=== PATIENT | female | born 1945 | race Caucasian/White ===

== ENCOUNTER 2022-01-28 19:14 | Inpatient (IN) | payer MEDICARE, MEDICAID, SELFPAY ==
[2022-01-28 19:49] VITALS: BP 144/70; PULSE 86; RESP 16; TEMP 36.2; O2SAT 96; BMI 20.5
--- NOTE | 2022-01-28 20:14 | ECG_ITS ---
Test Reason : CONFUSION Blood Pressure : / mmHG Vent. Rate : 072 BPM Atrial Rate : 072 BPM P-R Int : 160 ms QRS Dur : 074 ms QT Int : 420 ms P-R-T Axes : 062 042 067 degrees QTc Int : 459 ms Normal sinus rhythm Normal ECG No previous ECGs available Referred By: Melodie Doyle Electronically Signed By:CAREY LÓPEZ MD
--- NOTE | 2022-01-28 20:37 | ED.PSYCH ---
HPI - Psych General Chief Complaint: Psychiatric Symptoms <TREY Helm Last Filed: 01/28/22 20:45> Stated Complaint: crisis eval <TREY Helm Last Filed: 01/28/22 20:45> Time Seen by Provider: 01/28/22 20:08 <TREY Helm Last Filed: 01/28/22 20:45> Source: patient <TREY Helm Last Filed: 01/28/22 20:45> Mode of arrival: ambulatory <TREY Helm Last Filed: 01/28/22 20:45> History of Present Illness HPI Narrative: 76-year-old female with a past medical history of depression sent to ED s/p BHN evaluation in the community for [facility] bed search. Patient reports increasing lethargy/sleeping all day and up through the night, not performing ADLs, no desire to do anything, and brain feels empty. Admits to seeing new provider that discontinued her Gabapentin and Ativan without improvement in symptoms. Denies SI/HI, illicit drug or ETOH use. Denies CP/SOB, abdominal pain, nausea/vomiting <TREY Helm Last Filed: 01/28/22 20:45> MD complaint: feels depressed <TREY Helm Last Filed: 01/28/22 20:45> Onset (ago): month(s) <TREY Helm Last Filed: 01/28/22 20:45> Duration: constant and getting worse <TREY Helm Last Filed: 01/28/22 20:45> Related Data Allergies/Adverse Reactions: Allergies Allergy/AdvReac Type Severity Reaction Status Date / Time sertraline Allergy Unknown Verified 01/28/22 20:02 cefuroxime [From Ceftin] AdvReac Stomach Verified 01/28/22 20:01 Upset oxycodone AdvReac Anxiety Verified 01/28/22 20:02 bet AdvReac Palpitation Uncoded 01/28/22 19:59 s <TREY Helm Last Filed: 01/28/22 20:45> Review of Systems Review of Systems: Constitutional: No Fever, No Chills, + Fatigue, + Malaise, +anorexia ENT/Mouth: No Ear Pain, No Nasal Congestion, No Sinus Pain, No sore throat, No Swallowing Difficulty Eyes: No Eye Pain, No Swelling, No Redness Cardiovascular: No Chest Pain, No SOB, No Edema, No Palpitations Respiratory: No Cough, No Sputum, No Dyspnea Gastrointestinal: No Nausea, No Vomiting, No Diarrhea, No Constipation, No Abdominal pain Genitourinary: No Dysuria, No Urinary Frequency, No Hematuria, No Flank Pain Musculoskeletal: No joint pain, No Myalgias, No Joint Swelling Skin: No Skin Lesions, No rash Neuro: No Weakness, No Dizziness, No Headache Psych: No Anxiety/Panic, + Depression, No SI/HI/AH/VH <TREY Helm - Last Filed: 01/28/22 20:45> Yes all other systems are reviewed and are negative <TREY Helm - Last Filed: 01/28/22 20:45> [facility] Past Medical History Attestation statement: The following information was validated with the patient. <TREY Helm - Last Filed: 01/28/22 20:45> Social History Social History: Social History Advance Directives: No Advance Directives Information Provided: No <TREY Helm - Last Filed: 01/28/22 20:45> Physical Exam Vital Signs: Vital Signs: Last Vital Signs Temp 97.9 F 01/28/22 21:41 Pulse 80 01/29/22 01:13 Resp 18 01/29/22 01:13 BP 119/51 L 01/29/22 01:13 Pulse Ox 98 01/29/22 01:13 BMI result Body Mass Index 20.5 <TREY Helm - Last Filed: 01/28/22 20:45> Vital Signs: Last Vital Signs Temp 97.9 F 01/28/22 21:41 Pulse 80 01/29/22 01:13 Resp 18 01/29/22 01:13 BP 119/51 L 01/29/22 01:13 Pulse Ox 98 01/29/22 01:13 BMI result Body Mass Index 20.5 <TREY Perez - Last Filed: 01/29/22 01:44> Const: General: cooperative, healthy appearing, no acute distress, alert and awake <TREY Helm - Last Filed: 01/28/22 20:45> Orientation/consciousness: patient oriented x3 <TREY Helm - Last Filed: 01/28/22 20:45> Limitations: no limitations <TREY Helm - Last Filed: 01/28/22 20:45> HEENT: Head: Yes normal to inspection <Melodie Doyle PA - Last Filed: 01/28/22 20:45> Ears: hearing grossly normal bilaterally <Melodie Doyle PA - Last Filed: 01/28/22 20:45> General nose exam: Normal external nose present <Melodie Doyle PA - Last Filed: 01/28/22 20:45> Face and sinus: Yes normal facial exam <TREY Helm - Last Filed: 01/28/22 20:45> Eyes: General: appearance normal, both eyes and all related structures <TREY Helm - Last Filed: 01/28/22 20:45> Pupils: Equal, round and reactive pupils present <Melodie Doyle PA - Last Filed: 01/28/22 20:45> EOM: EOMs intact bilaterally <Melodie Doyle PA - Last Filed: 01/28/22 20:45> Neck: Neck: Yes normal visual inspection and Yes no meningeal signs <Melodie Doyle PA - Last Filed: 01/28/22 20:45> Resp: Effort & Inspection: normal respiratory effort and no respiratory distress <TREY Helm - Last Filed: 01/28/22 20:45> Auscultation: clear to auscultation bilaterally, no crackles, no rales, no rhonchi and no wheezes <Melodie Doyle PA - Last Filed: 01/28/22 20:45> Cardio: Rate: regular rate <TREY Helm - Last Filed: 01/28/22 20:45> Heart sounds: S1 normal heart sound present and S2 normal heart sound present <TREY Helm - Last Filed: 01/28/22 20:45> GI: Inspection: Yes normal to inspection <TREY Helm - Last Filed: 01/28/22 20:45> Palpation (GI): Soft to palpation, nontender, no guarding and not rigid <Melodie Doyle PA - Last Filed: 01/28/22 20:45> : General: Yes no CVA tenderness <Melodie Doyle PA - Last Filed: 01/28/22 20:45> Back/Spine/Pelvis: Back: no CVA tenderness <Melodie Doyle PA - Last Filed: 01/28/22 20:45> Skin: Rashes: no rashes <Melodie Doyle PA - Last Filed: 01/28/22 20:45> Wounds: no wounds <Melodie Doyle PA - Last Filed: 01/28/22 20:45> Neuro: General: patient oriented x3, tone normal, moves all extremities, no meningeal signs and CN's II-XI intact bilaterally <Melodie Doyle PA - Last Filed: 01/28/22 20:45> Cranial nerves: Yes Equal, round and reactive pupils present <Melodie Doyle PA - Last Filed: 01/28/22 20:45> Gait exam (Neuro): Normal gait present <Melodie Doyle PA - Last Filed: 01/28/22 20:45> Extrem: General: Yes normal to inspection <Melodie Doyle PA - Last Filed: 01/28/22 20:45> Psych: Appearance: grossly normal <Melodie Doyle PA - Last Filed: 01/28/22 20:45> Mental Status: mental status grossly normal <Melodie Doyle PA - Last Filed: 01/28/22 20:45> Speech and movement: Normal speech and movement present and Clear speech present <Melodie Doyle PA - Last Filed: 01/28/22 20:45> Affect: Indifferent affect present and Blunted affect present <Melodie Doyle PA - Last Filed: 01/28/22 20:45> Attitude: cooperative <Melodie Doyle PA - Last Filed: 01/28/22 20:45> Thought process: Normal thought process present <Melodie Doyle PA - Last Filed: 01/28/22 20:45> Thought content: suicidality and no homicidality <TREY Helm Last Filed: 01/28/22 20:45> Insight: Good insight present (Psych) <TREY Helm Last Filed: 01/28/22 20:45> Judgement: Good judgement present (Psych) <TREY Helm Last Filed: 01/28/22 20:45> Course Course Course Narrative: -2100--ED care transferred to TREY Candelaria pending EKG, labs, and [facility] psych bed search <TREY Helm Last Filed: 01/28/22 20:45> Reevaluation(s) Reevaluation #1: CBC without leukocytosis, normocytic anemia is noted. Patient's sodium is noted to be slightly low, however she is receiving IV fluids. UA clean. Toxicology negative. COVID negative. <TREY Perez Last Filed: 01/29/22 01:44> Time: 01:39 <TREY Perez Last Filed: 01/29/22 01:44> Reevaluation #2: At this time patient has been placed in physician observation to allow more time to be evaluated by the behavioral health team. At time observation was started patient, cooperative no acute distress. No medical complaints. Physical examination unchanged from initial. Will continue to monitor. <TREY Perez - Last Filed: 01/29/22 01:44> Time: 01:44 <TREY Perez Last Filed: 01/29/22 01:44> MDM - Psych MDM Narrative Medical decision making narrative: 76-year-old female with a past medical history of depression sent to ED s/p BHN evaluation in the community for [facility] psych bed search. Patient reports increasing lethargy/sleeping all day and up through the night, not performing ADLs, no desire to do anything, and brain feels empty. On exam vital signs stable, NAD/nontoxic, physical exam as above. Patient was already evaluated in community and is [facility] psych bed search Will obtain EKG and clearance labs Physician observation initiated <TREY Hlem Last Filed: 01/28/22 20:45> Differential Diagnosis Differential diagnosis: Likely depression and mood disorder <TREY Helm Last Filed: 01/28/22 20:45> Medical Records Attestation: I reviewed the patient's medical records. <TREY Helm - Last Filed: 01/28/22 20:45> Lab Data Attestation: I reviewed the patient's lab results. <TREY Helm - Last Filed: 01/28/22 20:45> Result diagrams: : 01/28/22 21:19 01/28/22 21:19 <TREY Helm - Last Filed: 01/28/22 20:45> Labs: Lab Results 01/28/22 01/28/22 01/28/22 Range/Units 21:19 21:19 21:19 WBC 8.4 (4.8-10.8) X10*3/uL RBC 4.02 L (4.20-5.50) X10*6/uL Hgb 10.9 L (12.0-16.0) g/dl Hct 32.9 L (37.0-47.0) % MCV 81.8 (80.0-98.0) fL MCH 27.1 (27.0-33.0) pg MCHC 33.1 (31.0-35.0) g/dl RDW 13.9 (11.0-16.0) % Plt Count 296 (160-400) X10*3/uL MPV 10.0 (9.4-12.3) fL Immature Gran % (Auto) 0.4 (0.0-0.4) % Neut % (Auto) 77.4 H (45-73) % Lymph % (Auto) 10.9 L (20-40) % [place] % (Auto) 9.8 (2-11) % Eos % (Auto) 1.1 (0-4) % Baso % (Auto) 0.4 (0-2) % Lymph # (Auto) 0.9 L (1.2-4.9) X10*3/uL [place] # (Auto) 0.8 (0.1-1.2) X10*3/uL Eos # (Auto) 0.1 (0.0-0.4) X10*3/uL Baso # (Auto) 0.0 (0.0-0.2) X10*3/uL Abs Immat Gran (auto) 0.03 (0.00-0.03) X10*3/uL Absolute Neuts (auto) 6.5 (2.0-8.3) x10*3/uL Absolute Nucleated RBC 0.000 (0.0-0.012) X10*3/uL Nucleated RBC % (auto) 0.0 (0.0-0.2) /100WBC Sodium 132 L (135-145) mmol/L Potassium 3.8 (3.3-5.1) mmol/L Chloride 95 L (96-108) mmol/L Carbon Dioxide 28 (22-29) mmol/L Anion Gap 13 (12-20) BUN 12 (9-16) mg/dL Creatinine 0.70 (0.5-1.4) mg/dL Estim Creat Clear Calc 58.7 Estimated GFR > 60 Random Glucose 101 (60-115) mg/dL Calcium 9.4 (8.4-10.2) mg/dL Magnesium 1.8 (1.6-2.6) mg/dL Total Bilirubin 0.4 (0.0-1.0) mg/dL Direct Bilirubin 0.2 (0.0-0.5) mg/dL AST 31 (5-31) U/L ALT 27 (0-31) U/L Alkaline Phosphatase 115 (39-117) U/L Total Protein 6.6 (6.5-8.0) g/dL Albumin 4.0 (3.5-5.0) g/dL Urine Color Urine Appearance Urine pH (5.0-8.0) Ur Specific [place] (1.005-1.025) Urine Protein (NEG-TRACE) MG/DL Urine Glucose (UA) (NEG) MG/DL Urine Ketones (NEG) MG/DL Urine Blood (NEG) Urine Nitrite (NEG) Ur Leukocyte Esterase (NEG) Urine RBC (0) /HPF Urine WBC (0-4) /HPF Ur Squamous Epith Cells /LPF Calcium Phosphate Cryst /LPF Urine Bacteria /LPF Urine Opiates Screen (Not Detect) Urine Fentanyl Screen (Not Detect) Ur Barbiturates Screen (Not Detect) Ur Phencyclidine Scrn (Not Detect) Ur Amphetamines Screen (Not Detect) U Benzodiazepines Scrn (Not Detect) Urine Cocaine Screen (Not Detect) U Marijuana (THC) Screen (Not Detect) COVID-19 ([facility]) Negative (Negative) COVID-19 Clin Com See Note 01/29/22 01/29/22 Range/Units 01:03 01:03 WBC (4.8-10.8) X10*3/uL RBC (4.20-5.50) X10*6/uL Hgb (12.0-16.0) g/dl Hct (37.0-47.0) % MCV (80.0-98.0) fL MCH (27.0-33.0) pg MCHC (31.0-35.0) g/dl RDW (11.0-16.0) % Plt Count (160-400) X10*3/uL MPV (9.4-12.3) fL Immature Gran % (Auto) (0.0-0.4) % Neut % (Auto) (45-73) % Lymph % (Auto) (20-40) % [place] % (Auto) (2-11) % Eos % (Auto) (0-4) % Baso % (Auto) (0-2) % Lymph # (Auto) (1.2-4.9) X10*3/uL [place] # (Auto) (0.1-1.2) X10*3/uL Eos # (Auto) (0.0-0.4) X10*3/uL Baso # (Auto) (0.0-0.2) X10*3/uL Abs Immat Gran (auto) (0.00-0.03) X10*3/uL Absolute Neuts (auto) (2.0-8.3) x10*3/uL Absolute Nucleated RBC (0.0-0.012) X10*3/uL Nucleated RBC % (auto) (0.0-0.2) /100WBC Sodium (135-145) mmol/L Potassium (3.3-5.1) mmol/L Chloride (96-108) mmol/L Carbon Dioxide (22-29) mmol/L Anion Gap (12-20) BUN (9-16) mg/dL Creatinine (0.5-1.4) mg/dL Estim Creat Clear Calc Estimated GFR Random Glucose (60-115) mg/dL Calcium (8.4-10.2) mg/dL Magnesium (1.6-2.6) mg/dL Total Bilirubin (0.0-1.0) mg/dL Direct Bilirubin (0.0-0.5) mg/dL AST (5-31) U/L ALT (0-31) U/L Alkaline Phosphatase (39-117) U/L Total Protein (6.5-8.0) g/dL Albumin (3.5-5.0) g/dL Urine Color YELLOW Urine Appearance CLEAR Urine pH 6.5 (5.0-8.0) Ur Specific [place] 1.010 (1.005-1.025) Urine Protein NEG (NEG-TRACE) MG/DL Urine Glucose (UA) NEG (NEG) MG/DL Urine Ketones NEG (NEG) MG/DL Urine Blood NEG (NEG) Urine Nitrite NEG (NEG) Ur Leukocyte Esterase TRACE H (NEG) Urine RBC 0 (0) /HPF Urine WBC 1-4 (0-4) /HPF Ur Squamous Epith Cells TRACE /LPF Calcium Phosphate Cryst TRACE /LPF Urine Bacteria TRACE /LPF Urine Opiates Screen Not Detected (Not Detect) Urine Fentanyl Screen Not Detected (Not Detect) Ur Barbiturates Screen Not Detected (Not Detect) Ur Phencyclidine Scrn Not Detected (Not Detect) Ur Amphetamines Screen Not Detected (Not Detect) U Benzodiazepines Scrn Not Detected (Not Detect) Urine Cocaine Screen Not Detected (Not Detect) U Marijuana (THC) Screen Not Detected (Not Detect) COVID-19 ([facility]) (Negative) COVID-19 Clin Com <TREY Helm - Last Filed: 01/28/22 20:45> Lab Results 01/28/22 01/28/22 01/28/22 Range/Units 21:19 21:19 21:19 WBC 8.4 (4.8-10.8) X10*3/uL RBC 4.02 L (4.20-5.50) X10*6/uL Hgb 10.9 L (12.0-16.0) g/dl Hct 32.9 L (37.0-47.0) % MCV 81.8 (80.0-98.0) fL MCH 27.1 (27.0-33.0) pg MCHC 33.1 (31.0-35.0) g/dl RDW 13.9 (11.0-16.0) % Plt Count 296 (160-400) X10*3/uL MPV 10.0 (9.4-12.3) fL Immature Gran % (Auto) 0.4 (0.0-0.4) % Neut % (Auto) 77.4 H (45-73) % Lymph % (Auto) 10.9 L (20-40) % [place] % (Auto) 9.8 (2-11) % Eos % (Auto) 1.1 (0-4) % Baso % (Auto) 0.4 (0-2) % Lymph # (Auto) 0.9 L (1.2-4.9) X10*3/uL [place] # (Auto) 0.8 (0.1-1.2) X10*3/uL Eos # (Auto) 0.1 (0.0-0.4) X10*3/uL Baso # (Auto) 0.0 (0.0-0.2) X10*3/uL Abs Immat Gran (auto) 0.03 (0.00-0.03) X10*3/uL Absolute Neuts (auto) 6.5 (2.0-8.3) x10*3/uL Absolute Nucleated RBC 0.000 (0.0-0.012) X10*3/uL Nucleated RBC % (auto) 0.0 (0.0-0.2) /100WBC Sodium 132 L (135-145) mmol/L Potassium 3.8 (3.3-5.1) mmol/L Chloride 95 L (96-108) mmol/L Carbon Dioxide 28 (22-29) mmol/L Anion Gap 13 (12-20) BUN 12 (9-16) mg/dL Creatinine 0.70 (0.5-1.4) mg/dL Estim Creat Clear Calc 58.7 Estimated GFR > 60 Random Glucose 101 (60-115) mg/dL Calcium 9.4 (8.4-10.2) mg/dL Magnesium 1.8 (1.6-2.6) mg/dL Total Bilirubin 0.4 (0.0-1.0) mg/dL Direct Bilirubin 0.2 (0.0-0.5) mg/dL AST 31 (5-31) U/L ALT 27 (0-31) U/L Alkaline Phosphatase 115 (39-117) U/L Total Protein 6.6 (6.5-8.0) g/dL Albumin 4.0 (3.5-5.0) g/dL Urine Color Urine Appearance Urine pH (5.0-8.0) Ur Specific [place] (1.005-1.025) Urine Protein (NEG-TRACE) MG/DL Urine Glucose (UA) (NEG) MG/DL Urine Ketones (NEG) MG/DL Urine Blood (NEG) Urine Nitrite (NEG) Ur Leukocyte Esterase (NEG) Urine RBC (0) /HPF Urine WBC (0-4) /HPF Ur Squamous Epith Cells /LPF Calcium Phosphate Cryst /LPF Urine Bacteria /LPF Urine Opiates Screen (Not Detect) Urine Fentanyl Screen (Not Detect) Ur Barbiturates Screen (Not Detect) Ur Phencyclidine Scrn (Not Detect) Ur Amphetamines Screen (Not Detect) U Benzodiazepines Scrn (Not Detect) Urine Cocaine Screen (Not Detect) U Marijuana (THC) Screen (Not Detect) COVID-19 ([facility]) Negative (Negative) COVID-19 Clin Com See Note 01/29/22 01/29/22 Range/Units 01:03 01:03 WBC (4.8-10.8) X10*3/uL RBC (4.20-5.50) X10*6/uL Hgb (12.0-16.0) g/dl Hct (37.0-47.0) % MCV (80.0-98.0) fL MCH (27.0-33.0) pg MCHC (31.0-35.0) g/dl RDW (11.0-16.0) % Plt Count (160-400) X10*3/uL MPV (9.4-12.3) fL Immature Gran % (Auto) (0.0-0.4) % Neut % (Auto) (45-73) % Lymph % (Auto) (20-40) % [place] % (Auto) (2-11) % Eos % (Auto) (0-4) % Baso % (Auto) (0-2) % Lymph # (Auto) (1.2-4.9) X10*3/uL [place] # (Auto) (0.1-1.2) X10*3/uL Eos # (Auto) (0.0-0.4) X10*3/uL Baso # (Auto) (0.0-0.2) X10*3/uL Abs Immat Gran (auto) (0.00-0.03) X10*3/uL Absolute Neuts (auto) (2.0-8.3) x10*3/uL Absolute Nucleated RBC (0.0-0.012) X10*3/uL Nucleated RBC % (auto) (0.0-0.2) /100WBC Sodium (135-145) mmol/L Potassium (3.3-5.1) mmol/L Chloride (96-108) mmol/L Carbon Dioxide (22-29) mmol/L Anion Gap (12-20) BUN (9-16) mg/dL Creatinine (0.5-1.4) mg/dL Estim Creat Clear Calc Estimated GFR Random Glucose (60-115) mg/dL Calcium (8.4-10.2) mg/dL Magnesium (1.6-2.6) mg/dL Total Bilirubin (0.0-1.0) mg/dL Direct Bilirubin (0.0-0.5) mg/dL AST (5-31) U/L ALT (0-31) U/L Alkaline Phosphatase (39-117) U/L Total Protein (6.5-8.0) g/dL Albumin (3.5-5.0) g/dL Urine Color YELLOW Urine Appearance CLEAR Urine pH 6.5 (5.0-8.0) Ur Specific [place] 1.010 (1.005-1.025) Urine Protein NEG (NEG-TRACE) MG/DL Urine Glucose (UA) NEG (NEG) MG/DL Urine Ketones NEG (NEG) MG/DL Urine Blood NEG (NEG) Urine Nitrite NEG (NEG) Ur Leukocyte Esterase TRACE H (NEG) Urine RBC 0 (0) /HPF Urine WBC 1-4 (0-4) /HPF Ur Squamous Epith Cells TRACE /LPF Calcium Phosphate Cryst TRACE /LPF Urine Bacteria TRACE /LPF Urine Opiates Screen Not Detected (Not Detect) Urine Fentanyl Screen Not Detected (Not Detect) Ur Barbiturates Screen Not Detected (Not Detect) Ur Phencyclidine Scrn Not Detected (Not Detect) Ur Amphetamines Screen Not Detected (Not Detect) U Benzodiazepines Scrn Not Detected (Not Detect) Urine Cocaine Screen Not Detected (Not Detect) U Marijuana (THC) Screen Not Detected (Not Detect) COVID-19 ([facility]) (Negative) COVID-19 Clin Com <TREY Perez - Last Filed: 01/29/22 01:44> Discharge Plan Discharge Clinical Impression: Depression <TREY Helm - Last Filed: 01/28/22 20:45> Patient Disposition: Still a Patient <TREY Helm - Last Filed: 01/28/22 20:45>
--- NOTE | 2022-01-28 21:10 | PC.NURSE ---
[facility] online referral completed. mechanical laboratory technician at bedside for labs and EKG.
[2022-01-28 21:25] LABS: MANUAL DIFF FLAG NO
[2022-01-28 21:31] LABS: Basophils Percent Auto 0.4 % (0-2); Eosinophils Absolute Auto 0.1 X10*3/uL (0.0-0.4); Eosinophils Percent Auto 1.1 % (0-4); Hematocrit 32.9 % (37.0-47.0); Hemoglobin 10.9 g/dl (12.0-16.0); Imm Gran Abs Auto 0.03 X10*3/uL (0.00-0.03); Imm Gran Pct Auto 0.4 % (0.0-0.4); Lymphocytes Absolute Auto 0.9 X10*3/uL (1.2-4.9); Lymphocytes Percent Auto 10.9 % (20-40); Mean Corpuscular HGB Conc 33.1 g/dl (31.0-35.0); Mean Corpuscular Hemoglobin 27.1 pg (27.0-33.0); Mean Corpuscular Volume 81.8 fL (80.0-98.0); Monocytes Absolute Auto 0.8 X10*3/uL (0.1-1.2); Monocytes Percent Auto 9.8 % (2-11); Neutrophils Absolute Auto 6.5 x10*3/uL (2.0-8.3); Neutrophils Percent Auto 77.4 % (45-73); Platelet Count 296 X10*3/uL (160-400); Red Blood Count 4.02 X10*6/uL (4.20-5.50); Red Cell Distribution Width 13.9 % (11.0-16.0); White Blood Count 8.4 X10*3/uL (4.8-10.8)
[2022-01-28 21:41] VITALS: BP 115/58; PULSE 65; RESP 14; TEMP 36.6; O2SAT 93
[2022-01-28 21:42] LABS: Alanine Aminotransferase 27 U/L (0-31); Alkaline Phosphatase 115 U/L (39-117); Anion Gap 13 (12-20); Aspartate Amino Transferase 31 U/L (5-31); Bilirubin Direct 0.2 mg/dL (0.0-0.5); Bilirubin Total 0.4 mg/dL (0.0-1.0); Blood Urea Nitrogen 12 mg/dL (9-16); Calcium 9.4 mg/dL (8.4-10.2); Carbon Dioxide 28 mmol/L (22-29); Chloride 95 mmol/L (96-108); Creatinine Clr Calc Pharmacy 58.7; Estimated Glomerular Filt Rate > 60; Glucose Random 101 mg/dL (60-115); Magnesium 1.8 mg/dL (1.6-2.6); Potassium 3.8 mmol/L (3.3-5.1); Sodium 132 mmol/L (135-145); Total Protein 6.6 g/dL (6.5-8.0)
[2022-01-28 22:24] LABS: COVID-19 Test Negative (Negative); IDNOW Serial# 16C4AD1C
--- NOTE | 2022-01-28 23:46 | PC.NURSE ---
PT asked to use bathroom and requested urine cup in order to provide sample. When PT came out of the bathroom she stated that she missed the cup for the sample.
[2022-01-28] MEDS: 0.9 % Sodium Chloride 1,000 ML 999 ML IV (23:48)
--- NOTE | 2022-01-29 | ECG_ITS ---
Test Reason : MEDICAL CLEARANCE Blood Pressure : / mmHG Vent. Rate : 081 BPM Atrial Rate : 081 BPM P-R Int : 176 ms QRS Dur : 078 ms QT Int : 394 ms P-R-T Axes : 076 042 072 degrees QTc Int : 457 ms Sinus rhythm with frequent Premature ventricular complexes Otherwise normal ECG When compared with ECG of 28-JAN-2022 21:21, Premature ventricular complexes are now Present Referred By: Maria A Baker Electronically Signed By:CAERY LÓPEZ MD
--- NOTE | 2022-01-29 01:09 | PC.NURSE ---
Urine sample sent to lab. 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
[2022-01-29 01:11] LABS: Appearance Urine CLEAR; Color Urine YELLOW; Glucose Urine UA NEG (NEG); Leukocyte Esterase Urine TRACE (NEG); Nitrite Urine NEG (NEG); PH 6.5 (5.0-8.0); UACC Culture Trigger YES; Urine Blood NEG (NEG); Urine Ketones NEG (NEG); Urine Protein NEG (NEG-TRACE)
[2022-01-29 01:13] VITALS: BP 119/51; PULSE 80; RESP 18; O2SAT 98
[2022-01-29] MEDS: Acetaminophen 325 MG TABLET 650 MG PO ×4 (01:16→23:22)
[2022-01-29 01:22] LABS: Bacteria Urine TRACE /LPF; Calcium Phosphate Crystals Ur TRACE /LPF; RBC Urine 0 /HPF (0); Squamous Epithelial Cell Urine TRACE /LPF
[2022-01-29 01:32] LABS: Amphetamine Screen Urine Not Detected (Not Detect); Barbiturates, Urine Not Detected (Not Detect); Benzodiazepines Screen Urine Not Detected (Not Detect); Cannabinoid Screen Urine Not Detected (Not Detect); Cocaine Screen Urine Not Detected (Not Detect); Fentanyl, urine Not Detected (Not Detect); Opiate Screen Urine Not Detected (Not Detect); Phencyclidine Screen Urine Not Detected (Not Detect)
[2022-01-29 02:48] LABS: Basophils Percent Auto 0.6 % (0-2); Eosinophils Absolute Auto 0.2 X10*3/uL (0.0-0.4); Eosinophils Percent Auto 3.2 % (0-4); Hematocrit 31.6 % (37.0-47.0); Hemoglobin 10.6 g/dl (12.0-16.0); Imm Gran Abs Auto 0.02 X10*3/uL (0.00-0.03); Imm Gran Pct Auto 0.3 % (0.0-0.4); Lymphocytes Absolute Auto 1.2 X10*3/uL (1.2-4.9); Lymphocytes Percent Auto 17.4 % (20-40); MANUAL DIFF FLAG NO; Mean Corpuscular HGB Conc 33.5 g/dl (31.0-35.0); Mean Corpuscular Hemoglobin 27.6 pg (27.0-33.0); Mean Corpuscular Volume 82.3 fL (80.0-98.0); Mean Platelet Volume 9.9 fL (9.4-12.3); Monocytes Absolute Auto 0.8 X10*3/uL (0.1-1.2); Neutrophils Absolute Auto 4.6 x10*3/uL (2.0-8.3); Neutrophils Percent Auto 66.5 % (45-73); Platelet Count 274 X10*3/uL (160-400); Red Blood Count 3.84 X10*6/uL (4.20-5.50); White Blood Count 6.9 X10*3/uL (4.8-10.8)
--- NOTE | 2022-01-29 03:45 | PC.NURSE ---
PT med rec completed with reference to PT medical record and recently filled prescriptions.
[2022-01-29 06:00] VITALS: BP 116/59; PULSE 87; RESP 16; TEMP 36.3; O2SAT 97
[2022-01-29] MEDS: amLODIPine Besylate 10 MG TABLET PO (10:36)
[2022-01-29] MEDS: hydroCHLOROthiazide 12.5 MG TABLET PO (11:03)
[2022-01-29] MEDS: Clopidogrel Bisulfate 75 MG TABLET PO (11:04)
[2022-01-29] MEDS: Valsartan 80 MG TABLET PO (11:31)
--- NOTE | 2022-01-29 11:34 | PC.NURSE ---
Pt is A&Ox4, headache 02/04 at this time, medicated as per [facility] orders for headache. Pt is anxious being in the POD, explained procedure to pt at this time. Pt is calm and cooperative. Refused taking Lexapro as she said it is not a medication she currently takes and she doesn't feel comfortable taking it at this time. Awaiting inpatient [facility] psych bed, will continue to monitor.
[2022-01-29] MEDS: Ipratropium Bromide 1 PUFF/17 MCG INHALER 2 PUFF INHALE ×3 (12:56→19:49)
[2022-01-29 14:32] VITALS: BP 123/47; PULSE 69; RESP 18; TEMP 36.8; O2SAT 95
[2022-01-29 19:30] VITALS: BP 101/53; PULSE 89; TEMP 36.1
[2022-01-29] MEDS: Atorvastatin Calcium 80 MG TABLET PO (19:52)
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
[2022-01-30] MEDS: LORazepam 0.5 MG TABLET 0.25 MG PO (02:55)
[2022-01-30 08:22] LABS: Hemoglobin 10.1 g/dl (12.0-16.0); Mean Corpuscular HGB Conc 32.6 g/dl (31.0-35.0); Mean Corpuscular Hemoglobin 26.8 pg (27.0-33.0); Mean Corpuscular Volume 82.2 fL (80.0-98.0); Mean Platelet Volume 10.4 fL (9.4-12.3); Platelet Count 281 X10*3/uL (160-400); Red Blood Count 3.77 X10*6/uL (4.20-5.50); White Blood Count 6.9 X10*3/uL (4.8-10.8)
[2022-01-30 08:40] LABS: Anion Gap 13 (12-20); Blood Urea Nitrogen 13 mg/dL (9-16); Calcium 9.4 mg/dL (8.4-10.2); Carbon Dioxide 28 mmol/L (22-29); Chloride 96 mmol/L (96-108); Creatinine Clr Calc Pharmacy 60.4; Estimated Glomerular Filt Rate > 60; Potassium 3.2 mmol/L (3.3-5.1); Sodium 134 mmol/L (135-145)
[2022-01-30 08:56] VITALS: BP 123/60; PULSE 77; TEMP 36.3
[2022-01-30] MEDS: Valsartan 80 MG TABLET PO (08:58)
[2022-01-30] MEDS: Omeprazole 20 MG CAPSULE.DR PO (08:58)
[2022-01-30] MEDS: Clopidogrel Bisulfate 75 MG TABLET PO (08:58)
[2022-01-30] MEDS: amLODIPine Besylate 10 MG TABLET PO (08:58)
[2022-01-30] MEDS: hydroCHLOROthiazide 12.5 MG TABLET PO (08:58)
[2022-01-30 09:02] LABS: TSH reflex Free T4 1.62 uIU/mL (0.32-4.0)
[2022-01-30] MEDS: Escitalopram Oxalate 20 MG TABLET PO (09:03)
--- NOTE | 2022-01-30 10:17 | P.HPPS_ITS ---
[facility] Date of Service: 01/30/22 Chief Complaint: disorganized Sources of Information: patient interviewed, chart reviewed and crisis/core team assessment reviewed HPI Subjective Notes: Cano Warning and Conditional Voluntary Narrative: Patient is a 76-year-old female with history of mild to moderate depression, stroke, COPD, hypertension, b/l tremor who presents for worsening depression in the face of psychosocial stressors including of her best friend. Patient says that up until the past few months she was her normal self, overall doing well, driving her son to work every morning, going to the store, doing laundry and other household work and pain her own bills. However, her best friend 1 year ago this past October and patient feels that this loss is a significant part of her depression. For the past couple months patient said that she has been feeling sad, sleeping all day. She says she has not been living up to her expectations of herself and lists numerous activities she no longer participates in such as cleaning her house, doing laundry, going to the store; her son and 3-month-old grandson live in the same duplex and she does not visit them nearly as often as she would otherwise; she says she has not been eating very much because she has no energy to get up and make food. Crisis note reports that she has been attending less and less to ADLs. Patient endorses diminished interest, increased guilt, low energy, diminished appetite and once in awhile passive SI where she has had the thought if she just stays asleep perhaps she will not wake up and drift away. Patient says she has been on Lexapro for years. Up until last week she was also on gabapentin which was supposed to be for her tremor but her PCP took her off that, Ativan an iron, concerned that gabapentin and Ativan may be contributing to depression. Patient denies any drug or alcohol use. She agrees to medication management including Wellbutrin however she wonders if she has been on that before. Past Psychiatric History: Limited Medical Evaluation Reviewed: Yes PENDING SALE TO [facility] Medical History (Updated 01/30/22 @ 16:48 by Gustavo Davis MD) MDD (major depressive disorder), recurrent episode, moderate Family History: Maternal grandfather committed suicide Extended family members diagnosed with bipolar disorder Social History: Divorce after 40 years of marriage about 6 years ago Best friend 1 year ago Patient lives in a duplex with her son his and grandson; otherwise has a son and daughter and 3 grandchildren Substance History: Denies Trauma History: Denies Diagnostics Vital Signs (24Hr): Vital Signs - 24 hr 01/29/22 14:32 01/29/22 19:30 01/30/22 08:56 Temperature 98.3 F 97.0 F 97.4 F Pulse Rate 69 89 77 Respiratory Rate 18 Blood Pressure 123/47 L 101/53 L 123/60 Pulse Oximetry 95 BMI result Body Mass Index 20.5 Labs Results: 01/30/22 07:35 01/30/22 07:35 Labs: Laboratory Results - last 48 hr 01/28/22 01/28/22 01/28/22 21:19 21:19 21:19 WBC 8.4 RBC 4.02 L Hgb 10.9 L Hct 32.9 L MCV 81.8 MCH 27.1 MCHC 33.1 RDW 13.9 Plt Count 296 MPV 10.0 Immature Gran % (Auto) 0.4 Neut % (Auto) 77.4 H Lymph % (Auto) 10.9 L Lucas % (Auto) 9.8 Eos % (Auto) 1.1 Baso % (Auto) 0.4 Lymph # (Auto) 0.9 L Lucas # (Auto) 0.8 Eos # (Auto) 0.1 Baso # (Auto) 0.0 Abs Immat Gran (auto) 0.03 Absolute Neuts (auto) 6.5 Absolute Nucleated RBC 0.000 Nucleated RBC % (auto) 0.0 Sodium 132 L Potassium 3.8 Chloride 95 L Carbon Dioxide 28 Anion Gap 13 BUN 12 Creatinine 0.70 Estim Creat Clear Calc 58.7 Estimated GFR > 60 Random Glucose 101 Calcium 9.4 Magnesium 1.8 Total Bilirubin 0.4 Direct Bilirubin 0.2 AST 31 ALT 27 Alkaline Phosphatase 115 Total Protein 6.6 Albumin 4.0 TSH Urine Color Urine Appearance Urine pH Ur Specific [place] Urine Protein Urine Glucose (UA) Urine Ketones Urine Blood Urine Nitrite Ur Leukocyte Esterase Urine RBC Urine WBC Ur Squamous Epith Cells Calcium Phosphate Cryst Urine Bacteria Urine Opiates Screen Urine Fentanyl Screen Ur Barbiturates Screen Ur Phencyclidine Scrn Ur Amphetamines Screen U Benzodiazepines Scrn Urine Cocaine Screen U Marijuana (THC) Screen COVID-19 ([facility]) Negative COVID-19 Clin Com See Note 01/29/22 01/29/22 01/29/22 01:03 01:03 02:44 WBC 6.9 RBC 3.84 L Hgb 10.6 L Hct 31.6 L MCV 82.3 MCH 27.6 MCHC 33.5 RDW 14.0 Plt Count 274 MPV 9.9 Immature Gran % (Auto) 0.3 Neut % (Auto) 66.5 Lymph % (Auto) 17.4 L Lucas % (Auto) 12.0 H Eos % (Auto) 3.2 Baso % (Auto) 0.6 Lymph # (Auto) 1.2 Lucas # (Auto) 0.8 Eos # (Auto) 0.2 Baso # (Auto) 0.0 Abs Immat Gran (auto) 0.02 Absolute Neuts (auto) 4.6 Absolute Nucleated RBC 0.000 Nucleated RBC % (auto) 0.0 Sodium Potassium Chloride Carbon Dioxide Anion Gap BUN Creatinine Estim Creat Clear Calc Estimated GFR Random Glucose Calcium Magnesium Total Bilirubin Direct Bilirubin AST ALT Alkaline Phosphatase Total Protein Albumin TSH Urine Color YELLOW Urine Appearance CLEAR Urine pH 6.5 Ur Specific [place] 1.010 Urine Protein NEG Urine Glucose (UA) NEG Urine Ketones NEG Urine Blood NEG Urine Nitrite NEG Ur Leukocyte Esterase TRACE H Urine RBC 0 Urine WBC 1-4 Ur Squamous Epith Cells TRACE Calcium Phosphate Cryst TRACE Urine Bacteria TRACE Urine Opiates Screen Not Detected Urine Fentanyl Screen Not Detected Ur Barbiturates Screen Not Detected Ur Phencyclidine Scrn Not Detected Ur Amphetamines Screen Not Detected U Benzodiazepines Scrn Not Detected Urine Cocaine Screen Not Detected U Marijuana (THC) Screen Not Detected COVID-19 ([facility]) COVID-19 Clin Com 01/30/22 01/30/22 01/30/22 07:35 07:35 07:35 WBC 6.9 RBC 3.77 L Hgb 10.1 L Hct 31.0 L MCV 82.2 MCH 26.8 L MCHC 32.6 RDW 14.0 Plt Count 281 MPV 10.4 Immature Gran % (Auto) Neut % (Auto) Lymph % (Auto) Lucas % (Auto) Eos % (Auto) Baso % (Auto) Lymph # (Auto) Lucas # (Auto) Eos # (Auto) Baso # (Auto) Abs Immat Gran (auto) Absolute Neuts (auto) Absolute Nucleated RBC 0.000 Nucleated RBC % (auto) 0.0 Sodium 134 L Potassium 3.2 L Chloride 96 Carbon Dioxide 28 Anion Gap 13 BUN 13 Creatinine 0.68 Estim Creat Clear Calc 60.4 Estimated GFR > 60 Random Glucose Calcium 9.4 Magnesium Total Bilirubin Direct Bilirubin AST ALT Alkaline Phosphatase Total Protein Albumin TSH 1.62 Urine Color Urine Appearance Urine pH Ur Specific [place] Urine Protein Urine Glucose (UA) Urine Ketones Urine Blood Urine Nitrite Ur Leukocyte Esterase Urine RBC Urine WBC Ur Squamous Epith Cells Calcium Phosphate Cryst Urine Bacteria Urine Opiates Screen Urine Fentanyl Screen Ur Barbiturates Screen Ur Phencyclidine Scrn Ur Amphetamines Screen U Benzodiazepines Scrn Urine Cocaine Screen U Marijuana (THC) Screen COVID-19 ([facility]) COVID-19 Clin Com Meds/Allergies Meds Home Medications Acetaminophen (Acetaminophen 325 Mg Tablet) 650 mg PO Q6H PRN PRN Reason: mild pain Last Admin: 01/30/22 13:46 Dose: 650 mg Documented by: Al Hydroxide/Mg Hydroxide (Magnesium Hydrox/Alum Hydrox 30 Ml Oral.Susp) 30 ml PO Q6H PRN PRN Reason: Heartburn/Nausea Amlodipine Besylate (Amlodipine Besylate 10 Mg Tablet) 10 mg PO DAILY [facility]; Protocol Last Admin: 01/30/22 08:58 Dose: 10 mg Documented by: Atorvastatin Calcium (Atorvastatin Calcium 80 Mg Tablet) 80 mg PO BEDTIME [facility] Last Admin: 01/29/22 19:52 Dose: 80 mg Documented by: Clopidogrel Bisulfate (Clopidogrel Bisulfate 75 Mg Tablet) 75 mg PO BEDTIME [facility] Cyanocobalamin (Cyanocobalamin (Vitamin B-12) 100 Mcg Tablet) 100 mcg PO DAILY [facility] Escitalopram Oxalate (Escitalopram Oxalate 20 Mg Tablet) 20 mg PO DAILY [facility] Last Admin: 01/30/22 09:03 Dose: 20 mg Documented by: Hydrochlorothiazide (Hydrochlorothiazide 12.5 Mg Tablet) 12.5 mg PO DAILY [facility]; Protocol Last Admin: 01/30/22 08:58 Dose: 12.5 mg Documented by: Ipratropium [place] (Ipratropium [place] 1 Puff/17 Mcg Inhaler) 2 puff INHALE BID PRN PRN Reason: Shortness of Breath Lorazepam (Lorazepam 0.5 Mg Tablet) 0.25 mg PO TID PRN PRN Reason: anxiety Last Admin: 01/30/22 02:55 Dose: 0.25 mg Documented by: Magnesium Hydroxide (Milk Of Magnesia 30 Ml Oral.Susp) 30 ml PO DAILY PRN PRN Reason: Constipation Multivitamins/Vitamin C (Multivitamin Tablet) 1 tab PO DAILY [facility] Nicotine Polacrilex (Nicotine Polacrilex Lozenge 2 Mg Lozenge) 2 mg BUCCAL Q2H PRN PRN Reason: nictotine craving Omeprazole (Omeprazole 20 Mg Capsule.Dr) 20 mg PO DAILY@0630 [facility] Last Admin: 01/30/22 08:58 Dose: 20 mg Documented by: Thiamine HCl (Thiamine Hcl 100 Mg Tablet) 100 mg PO DAILY [facility] Valsartan (Valsartan 80 Mg Tablet) 80 mg PO DAILY [facility]; Protocol Last Admin: 01/30/22 08:58 Dose: 80 mg Documented by: Allergies Allergies Allergy/AdvReac Type Severity Reaction Status Date / Time sertraline Allergy Unknown Verified 01/28/22 20:02 cefuroxime [From Ceftin] AdvReac Stomach Verified 01/28/22 20:01 Upset oxycodone AdvReac Anxiety Verified 01/28/22 20:02 bet AdvReac Palpitation Uncoded 01/28/22 19:59 s Mental Status Exam Mental Status Exam Narrative: Pt is alert and oriented; behavior is cooperative and calm; patient is not in distress; dressed in hospital gown; unkempt hair; mood is described as sad and affect congruent, downcast; eye contact often looking down; Speech is normal rate, volume and prosody and not pressured; some psychomotor retardation present; thought process is organized and goal directed; Thought content is on dealing with sadness; otherwise pertinent to relevant topics and without any delusional content, paranoid ideations or grandiosity; intermittent passive wish, otherwise denies any SI/HI. There is no evidence of perceptual disturbance. Patients insight and judgment are impaired. Assessment & Plan Assessment & Plan (1) MDD (major depressive disorder), recurrent episode, moderate: Status: Acute Code(s): F33.1 - Major depressive disorder, recurrent, moderate Plan Patient is a 76-year-old female with history of mild to moderate depression, stroke, COPD, hypertension, b/l tremor who presents for worsening depression in the face of psychosocial stressors including of her best friend. Patient says that up until the past few months she was her normal self, overall doing well, driving her son to work every morning, going to the store, doing laundry and other household work and pain her own bills. However, her best friend 1 year ago this past October and patient feels that this loss is a significant part of her depression. Patient endorses numerous symptoms of depression, poor attention to ADLs, sleeping all day and eating very little; she has intermittent passive wish but no active SI. Patient has been on Lexapro for years which she reports has been helpful. Recently stopped on gabapentin and Ativan out of concern could be contributing to her depression. Patient would like medication management to help with her symptoms. PLAN: CV Q 15 minute checks Transfer to geriatric floor once bed is available 1. Depression: -Continue Lexapro 20 mg daily -Will consider starting either Wellbutrin or mirtazapine (mirtazapine since it help stimulate appetite however patient has no trouble sleeping; Wellbutrin because patient says she has no energy) -Ca and TSH WNL 2. Normocytic anemia H&H has been slowly trending down during this admission; will follow. She has only been off iron for a week making is an unlikely cause; also it is not microcytic anemia -occult stool test ordered -will follow-up with lab work -B12 WNL -Foloate WNL 3. Mild Electrolyte imbalance -sodium low on admission; writer producer repeated lytes and sodium has trended back to normal -currently potassium mildly low; will monitor 4. Chronic conditions: Continue home medications Consider restarting gabapentin; patient has been on it for years and says it helped with her tremor and only stopped about a week ago making it and unlikely cause of depression Patient educated on: diagnosis and medication risk/benefits Informed Consent: understands Reason for continued inpatient stay Substantial Risk for: inability to function and rapid decompensation
[2022-01-30] MEDS: Cyanocobalamin (Vitamin B-12) 100 MCG TABLET PO (11:14)
[2022-01-30] MEDS: Multivitamin TABLET 1 TAB PO (11:14)
[2022-01-30] MEDS: Thiamine HCL 100 MG TABLET PO (11:14)
[2022-01-30 11:43] LABS: Folate 9.6 ng/mL (> or = 4.0); Vitamin B12 349 pg/mL (200-900)
[2022-01-30] MEDS: Acetaminophen 325 MG TABLET 650 MG PO (13:46)
[2022-01-30 18:00] VITALS: BP 99/58; PULSE 89; RESP 18; TEMP 36.6; O2SAT 96
[2022-01-30 19:34] LABS: OBS Int Ctl Valid YES; OBS1 POSITIVE (NEGATIVE)
[2022-01-30] MEDS: Atorvastatin Calcium 80 MG TABLET PO (20:18)
[2022-01-31] MEDS: Acetaminophen 325 MG TABLET 650 MG PO ×3 (03:55→23:37)
[2022-01-31] MEDS: Omeprazole 20 MG CAPSULE.DR PO (06:06)
[2022-01-31 08:45] VITALS: BP 105/60; PULSE 73; TEMP 37.2
[2022-01-31] MEDS: Valsartan 80 MG TABLET PO (08:56)
[2022-01-31] MEDS: hydroCHLOROthiazide 12.5 MG TABLET PO (08:56)
[2022-01-31] MEDS: Multivitamin TABLET 1 TAB PO (08:56)
[2022-01-31] MEDS: Cyanocobalamin (Vitamin B-12) 100 MCG TABLET PO (08:56)
[2022-01-31] MEDS: Thiamine HCL 100 MG TABLET PO (08:56)
[2022-01-31] MEDS: Escitalopram Oxalate 20 MG TABLET PO (08:57)
--- NOTE | 2022-01-31 10:20 | HO.PSYCHPN ---
Subjective Subjective Date of Service: 01/31/22 Reason For Visit: disorganized Interim History: Patient remembers curriculum writer and curriculum writer's name. She says she has okay but wants to transferred to the geriatric unit where she feels the beds will be more comfortable. Patient said she does not want to go to groups. Induction Coordination Power Engineer discussed about behavioral activation but patient remained adamant with a no she does not want to go to groups. she considers herself depressed to which she says I do not know. Induction Coordination Power Engineer asked about her having sadness which she says she does have sometimes. Induction Coordination Power Engineer explained how patient's behaviors are indicative of someone who is struggling with depression which she said she would continue to consider. That said she is open to medication trials. Patient informed that GI consult placed and that staff is retrieving her history from [facility]. Some additional information provided by her daughter Kriss who visited patient on admission and reported Patient has a history of colon polyps and history of GI bleed Patient was discontinued on gabapentin about a week ago out of concern that it could affect depression; daughter thinks that patient's tremor is actually better off the gabapentin She was also discontinued from Ativan for this same reason; also discontinued from iron supplements Records indicate patient has been prescribed Remeron in the past Mental Status Exam Mental Status Exam Narrative: Pt is alert and oriented; behavior is cooperative and calm; patient is not in distress; dressed in hospital gown; unkempt hair; mood is described as ok but affect blunted and downcast; eye contact often looking down;? Speech is normal rate, volume and prosody and not pressured; psychomotor retardation present; thought process is organized and goal directed; Thought content on having no energy, wanting to go to [facility]; otherwise pertinent to relevant topics and without any delusional content, paranoid ideations or grandiosity; intermittent passive wish, otherwise denies any SI/HI. There is no evidence of perceptual disturbance.? Patients insight and judgment are impaired. Diagnostics Vital Signs (24Hr): Vital Signs - 24 hr 01/30/22 18:00 01/31/22 08:45 Temperature 97.9 F 98.9 F Pulse Rate 89 73 Respiratory Rate 18 Blood Pressure 99/58 L 105/60 Pulse Oximetry 96 BMI result Body Mass Index 20.5 Labs Results: 02/01/22 11:13 02/01/22 11:10 Labs: Laboratory Results - last 48 hr 01/30/22 01/30/22 01/30/22 07:35 07:35 07:35 WBC 6.9 RBC 3.77 L Hgb 10.1 L Hct 31.0 L MCV 82.2 MCH 26.8 L MCHC 32.6 RDW 14.0 Plt Count 281 MPV 10.4 Absolute Nucleated RBC 0.000 Nucleated RBC % (auto) 0.0 Sodium 134 L Potassium 3.2 L Chloride 96 Carbon Dioxide 28 Anion Gap 13 BUN 13 Creatinine 0.68 Estim Creat Clear Calc 60.4 Estimated GFR > 60 Calcium 9.4 Vitamin B12 Folate TSH 1.62 Stool Occult Blood 01/30/22 01/30/22 07:35 19:27 WBC RBC Hgb Hct MCV MCH MCHC RDW Plt Count MPV Absolute Nucleated RBC Nucleated RBC % (auto) Sodium Potassium Chloride Carbon Dioxide Anion Gap BUN Creatinine Estim Creat Clear Calc Estimated GFR Calcium Vitamin B12 349 Folate 9.6 TSH Stool Occult Blood POSITIVE Medications Medications Current Medications Acetaminophen (Acetaminophen 325 Mg Tablet) 650 mg PO Q6H PRN PRN Reason: mild pain Last Admin: 01/31/22 03:55 Dose: 650 mg Documented by: Al Hydroxide/Mg Hydroxide (Magnesium Hydrox/Alum Hydrox 30 Ml Oral.Susp) 30 ml PO Q6H PRN PRN Reason: Heartburn/Nausea Amlodipine Besylate (Amlodipine Besylate 10 Mg Tablet) 10 mg PO DAILY [facility]; Protocol Last Admin: 01/30/22 08:58 Dose: 10 mg Documented by: Atorvastatin Calcium (Atorvastatin Calcium 80 Mg Tablet) 80 mg PO BEDTIME [facility] Last Admin: 01/30/22 20:18 Dose: 80 mg Documented by: Clopidogrel Bisulfate (Clopidogrel Bisulfate 75 Mg Tablet) 75 mg PO BEDTIME [facility] Cyanocobalamin (Cyanocobalamin (Vitamin B-12) 100 Mcg Tablet) 100 mcg PO DAILY [facility] Last Admin: 01/31/22 08:56 Dose: 100 mcg Documented by: Escitalopram Oxalate (Escitalopram Oxalate 20 Mg Tablet) 20 mg PO DAILY [facility] Last Admin: 01/31/22 08:57 Dose: 20 mg Documented by: Hydrochlorothiazide (Hydrochlorothiazide 12.5 Mg Tablet) 12.5 mg PO DAILY [facility]; Protocol Last Admin: 01/31/22 08:56 Dose: 12.5 mg Documented by: Ipratropium [place] (Ipratropium [place] 1 Puff/17 Mcg Inhaler) 2 puff INHALE BID PRN PRN Reason: Shortness of Breath Lorazepam (Lorazepam 0.5 Mg Tablet) 0.25 mg PO TID PRN PRN Reason: anxiety Last Admin: 01/30/22 02:55 Dose: 0.25 mg Documented by: Magnesium Hydroxide (Milk Of Magnesia 30 Ml Oral.Susp) 30 ml PO DAILY PRN PRN Reason: Constipation Multivitamins/Vitamin C (Multivitamin Tablet) 1 tab PO DAILY [facility] Last Admin: 01/31/22 08:56 Dose: 1 tab Documented by: Nicotine Polacrilex (Nicotine Polacrilex Lozenge 2 Mg Lozenge) 2 mg BUCCAL Q2H PRN PRN Reason: nictotine craving Omeprazole (Omeprazole 20 Mg Capsule.Dr) 20 mg PO DAILY@0630 [facility] Last Admin: 01/31/22 06:06 Dose: 20 mg Documented by: Thiamine HCl (Thiamine Hcl 100 Mg Tablet) 100 mg PO DAILY [facility] Last Admin: 01/31/22 08:56 Dose: 100 mg Documented by: Valsartan (Valsartan 80 Mg Tablet) 80 mg PO DAILY [facility]; Protocol Last Admin: 01/31/22 08:56 Dose: 80 mg Documented by: Allergies Allergies Allergy/AdvReac Type Severity Reaction Status Date / Time sertraline Allergy Unknown Verified 01/28/22 20:02 cefuroxime [From Ceftin] AdvReac Stomach Verified 01/28/22 20:01 Upset oxycodone AdvReac Anxiety Verified 01/28/22 20:02 bet AdvReac Palpitation Uncoded 01/28/22 19:59 s Assessment & Plan Assessment & Plan (1) MDD (major depressive disorder), recurrent episode, moderate: Status: Acute Code(s): F33.1 - Major depressive disorder, recurrent, moderate Plan Patient is a 76-year-old female with history of mild to moderate depression, stroke, COPD, hypertension, b/l tremor who presents for worsening depression in the face of psychosocial stressors including of her best friend. Patient says that up until the past few months she was her normal self, overall doing well, driving her son to work every morning, going to the store, doing laundry and other household work and pain her own bills. However, her best friend 1 year ago this past October and patient feels that this loss is a significant part of her depression. Patient endorses numerous symptoms of depression, poor attention to ADLs, sleeping all day and eating very little; she has intermittent passive wish but no active SI. Patient has been on Lexapro for years which she reports has been helpful. Recently stopped on gabapentin and Ativan out of concern could be contributing to her depression. Patient would like medication management to help with her symptoms. 01/31 patient remains depressed; will likely start Wellbutrin however patient and her daughter wanted to make sure that her past medical records from [facility] reviewed prior to starting this medication to which curriculum writer agreed. Currently nursing staff is seeking to obtain these records. Some additional information provided by her daughter Kriss who visited patient on admission and reported -Patient has a history of colon polyps and history of GI bleed -Patient was discontinued on gabapentin about a week ago out of concern that it could affect depression; daughter thinks that patient's tremor is actually better off the gabapentin -She was also discontinued from Ativan for this same reason; also discontinued from iron supplements -Records indicate patient has been prescribed Remeron in the past PLAN: CV Q 15 minute checks Transfer to geriatric floor once bed is available 1. Depression: -Continue Lexapro 20 mg daily -Likely start Wellbutrin which is good for helping with activation; just waiting for medical history from [facility] (past trial of mirtazapine) -Ca and TSH WNL 2. Normocytic anemia H&H has been slowly trending down during this admission; will follow. She has only been off iron for a week making is an unlikely cause; also it is not microcytic anemia -occult stool test + -GI consult placed -will follow-up with lab work -B12 WNL -Foloate WNL 3. Mild Electrolyte imbalance -sodium low on admission; curriculum writer repeated lytes and sodium has trended back to normal -currently potassium mildly low; will monitor 4. Chronic conditions: Continue home medications Consider restarting gabapentin; patient has been on it for years and says it helped with her tremor and only stopped about a week ago making it and unlikely cause of depression I spent minutes with the patient and/or on the patient floor today, greater than?50% of which was spent counseling/coordinating care. Patient educated on: diagnosis Informed Consent: further education needed Reason for contiued inpatient stay Substantial Risk for: rapid decompensation
--- NOTE | 2022-01-31 16:48 | PM.EVENT ---
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. I have advised her to call his office to expedite her evaluation upon discharge and we will send a copy of the consultation to [facility]. Continue proton pump inhibitor and follow hematocrit.
[2022-01-31] MEDS: Ipratropium Bromide 1 PUFF/17 MCG INHALER 2 PUFF INHALE (19:07)
[2022-01-31 20:30] VITALS: BP 130/64; PULSE 67; TEMP 35.8; O2SAT 96
[2022-01-31] MEDS: Clopidogrel Bisulfate 75 MG TABLET PO (21:07)
[2022-01-31] MEDS: Atorvastatin Calcium 80 MG TABLET PO (21:07)
[2022-02-01 02:01] VITALS: BP 133/63; PULSE 93; RESP 16; TEMP 36.2; O2SAT 96
[2022-02-01] MEDS: LORazepam 0.5 MG TABLET 0.25 MG PO ×3 (02:04→23:35)
--- NOTE | 2022-02-01 03:12 | CONS_ITS ---
DATE OF SERVICE: 01/31/2022 REFERRING PHYSICIAN: Gustavo Davis MD REASON FOR CONSULTATION: Anemia and Hemoccult-positive stools. HISTORY OF PRESENT ILLNESS: The patient is a pleasant 76-year-old woman who was admitted to the inpatient psychiatric unit on January 30 with worsening depression. Consultation is requested as the patient was noted to have anemia with a hematocrit of 32.9 on admission, which dropped somewhat to 31 yesterday morning. Stool occult blood testing has been positive. The patient describes multiple evaluations for GI blood loss. Review of her records shows that she is followed by Dr. 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 She has followup scheduled later this month through Dr. Weathers's office for repeat colonoscopy and push enteroscopy. The patient has no complaints of abdominal pain. She states her stools are somewhat mushy. She does notice they are black with iron, but are formed without any suggestion of melena and she has no complaints of epigastric pain. She is currently on omeprazole and is also on clopidogrel for a history of previous CVA. She has been intolerant of anticoagulation with oral agents in the past because of GI blood loss. PAST MEDICAL HISTORY: 1. Depression. 2. GI bleeding as above. 3. CVA. 4. COPD. 5. Hypertension. 6. Tremor. CURRENT MEDICATIONS: Current medication list is reviewed in the chart. ALLERGIES: INCLUDE MULTIPLE MEDICATIONS THAT ARE REVIEWED. FAMILY HISTORY: This is reviewed with the patient and is noncontributory. SOCIAL HISTORY: There is no current tobacco, alcohol, or substance abuse. She does use nicotine vaping equipment. REVIEW OF SYSTEMS: SKIN: No pruritus. HEENT: Negative. CARDIOPULMONARY: No shortness of breath or chest pain. GASTROINTESTINAL: As above. GENITOURINARY: Negative. NEUROPSYCHIATRIC: Negative. PHYSICAL EXAMINATION: GENERAL: Shows a pleasant female, sitting comfortably in a chair. VITAL SIGNS: Reviewed in electronic medical record and are stable. SKIN: Anicteric. HEENT: Shows no scleral icterus. NECK: Without lymphadenopathy or thyromegaly. LUNGS: Clear. HEART: Shows a regular rate and rhythm. S1, S2. No murmur. ABDOMEN: Soft without focal masses or tenderness. Bowel sounds are present. No organomegaly is noted. EXTREMITIES: Without edema. LABORATORY DATA: Reviewed. IMPRESSION: Anemia with Hemoccult-positive stools. At this time, she appears quite stable with no evidence of active ongoing bleeding. She likely has some component of gastrointestinal blood loss from her angioectasias, and I discussed this with her. I would recommend continuing a proton pump inhibitor and following her hematocrit. I discussed with her that I would recommend she call Dr. Weathers's office after discharge from the inpatient psychiatric unit to see if they can accommodate her for her followup studies in a timely manner. Thanks for asking me to see her. I will follow her in the hospital with you. MD DEMETRICE Persaud/GUADALUPE / [id number]
[2022-02-01] MEDS: Omeprazole 20 MG CAPSULE.DR PO (06:06)
[2022-02-01 08:15] VITALS: BP 136/88; PULSE 88; TEMP 37.1
[2022-02-01] MEDS: Thiamine HCL 100 MG TABLET PO (08:42)
[2022-02-01] MEDS: amLODIPine Besylate 10 MG TABLET PO (08:42)
[2022-02-01] MEDS: hydroCHLOROthiazide 12.5 MG TABLET PO (08:42)
[2022-02-01] MEDS: Cyanocobalamin (Vitamin B-12) 100 MCG TABLET PO (08:42)
[2022-02-01] MEDS: Valsartan 80 MG TABLET PO (08:42)
[2022-02-01] MEDS: Escitalopram Oxalate 20 MG TABLET PO (08:43)
[2022-02-01] MEDS: Multivitamin TABLET 1 TAB PO (08:43)
[2022-02-01 11:14] LABS: MANUAL DIFF FLAG NO
[2022-02-01 11:17] LABS: Basophils Percent Auto 0.5 % (0-2); Eosinophils Absolute Auto 0.2 X10*3/uL (0.0-0.4); Hematocrit 31.7 % (37.0-47.0); Hemoglobin 10.6 g/dl (12.0-16.0); Imm Gran Abs Auto 0.01 X10*3/uL (0.00-0.03); Imm Gran Pct Auto 0.2 % (0.0-0.4); Lymphocytes Absolute Auto 0.9 X10*3/uL (1.2-4.9); Lymphocytes Percent Auto 15.2 % (20-40); Mean Corpuscular HGB Conc 33.4 g/dl (31.0-35.0); Mean Corpuscular Hemoglobin 27.2 pg (27.0-33.0); Mean Corpuscular Volume 81.5 fL (80.0-98.0); Mean Platelet Volume 9.9 fL (9.4-12.3); Monocytes Absolute Auto 0.8 X10*3/uL (0.1-1.2); Monocytes Percent Auto 14.5 % (2-11); Neutrophils Absolute Auto 3.8 x10*3/uL (2.0-8.3); Neutrophils Percent Auto 66.6 % (45-73); Platelet Count 263 X10*3/uL (160-400); Red Blood Count 3.89 X10*6/uL (4.20-5.50); Red Cell Distribution Width 13.8 % (11.0-16.0); White Blood Count 5.7 X10*3/uL (4.8-10.8)
[2022-02-01 11:31] LABS: Anion Gap 10 (12-20); Blood Urea Nitrogen 11 mg/dL (9-16); Carbon Dioxide 31 mmol/L (22-29); Chloride 95 mmol/L (96-108); Creatinine Clr Calc Pharmacy 63.2; Estimated Glomerular Filt Rate > 60; Potassium 3.3 mmol/L (3.3-5.1); Sodium 133 mmol/L (135-145)
[2022-02-01] MEDS: Acetaminophen 325 MG TABLET 650 MG PO ×2 (12:49→23:37)
--- NOTE | 2022-02-01 13:32 | HO.PSYCHPN ---
Subjective Subjective Date of Service: 02/01/22 Reason For Visit: disorganized Interim History: Patient lying in bed and says she has a headache. Agrees to Tylenol. Patient grateful going to geriatric floor today. She remains depressed. GI consult saw patient today, see recommendations in under plan Mental Status Exam Mental Status Exam Narrative: Pt is alert and oriented; behavior is cooperative and calm; patient is not in distress; dressed in hospital gown; unkempt hair; mood is described as ok but affect blunted and downcast; eye contact often looking down;? Speech is normal rate, volume and prosody and not pressured;? psychomotor retardation present; thought process is organized and goal directed; Thought content on having no energy, wanting to go to [facility]; otherwise pertinent to relevant topics and without any delusional content, paranoid ideations or grandiosity; intermittent passive wish, otherwise denies any SI/HI. There is no evidence of perceptual disturbance.? Patients insight and judgment are impaired. Diagnostics Vital Signs (24Hr): Vital Signs - 24 hr 01/31/22 20:30 02/01/22 02:01 Temperature 96.5 F L 97.1 F Pulse Rate 67 93 Respiratory Rate 16 Blood Pressure 130/64 133/63 Pulse Oximetry 96 96 BMI result Body Mass Index 20.5 Labs Results: 02/01/22 11:13 02/01/22 11:10 Labs: Laboratory Results - last 48 hr 01/30/22 02/01/22 02/01/22 19:27 11:10 11:13 WBC 5.7 RBC 3.89 L Hgb 10.6 L Hct 31.7 L MCV 81.5 MCH 27.2 MCHC 33.4 RDW 13.8 Plt Count 263 MPV 9.9 Immature Gran % (Auto) 0.2 Neut % (Auto) 66.6 Lymph % (Auto) 15.2 L [place] % (Auto) 14.5 H Eos % (Auto) 3.0 Baso % (Auto) 0.5 Lymph # (Auto) 0.9 L [place] # (Auto) 0.8 Eos # (Auto) 0.2 Baso # (Auto) 0.0 Abs Immat Gran (auto) 0.01 Absolute Neuts (auto) 3.8 Absolute Nucleated RBC 0.000 Nucleated RBC % (auto) 0.0 Sodium 133 L Potassium 3.3 Chloride 95 L Carbon Dioxide 31 H Anion Gap 10 L BUN 11 Creatinine 0.65 Estim Creat Clear Calc 63.2 Estimated GFR > 60 Stool Occult Blood POSITIVE Medications Medications Current Medications Acetaminophen (Acetaminophen 325 Mg Tablet) 650 mg PO Q6H PRN PRN Reason: mild pain Last Admin: 02/01/22 12:49 Dose: 650 mg Documented by: Al Hydroxide/Mg Hydroxide (Magnesium Hydrox/Alum Hydrox 30 Ml Oral.Susp) 30 ml PO Q6H PRN PRN Reason: Heartburn/Nausea Amlodipine Besylate (Amlodipine Besylate 10 Mg Tablet) 10 mg PO DAILY [facility]; Protocol Last Admin: 02/01/22 08:42 Dose: 10 mg Documented by: Atorvastatin Calcium (Atorvastatin Calcium 80 Mg Tablet) 80 mg PO BEDTIME [facility] Last Admin: 01/31/22 21:07 Dose: 80 mg Documented by: Clopidogrel Bisulfate (Clopidogrel Bisulfate 75 Mg Tablet) 75 mg PO BEDTIME [facility] Last Admin: 01/31/22 21:07 Dose: 75 mg Documented by: Cyanocobalamin (Cyanocobalamin (Vitamin B-12) 100 Mcg Tablet) 100 mcg PO DAILY [facility] Last Admin: 02/01/22 08:42 Dose: 100 mcg Documented by: Escitalopram Oxalate (Escitalopram Oxalate 20 Mg Tablet) 20 mg PO DAILY [facility] Last Admin: 02/01/22 08:43 Dose: 20 mg Documented by: Hydrochlorothiazide (Hydrochlorothiazide 12.5 Mg Tablet) 12.5 mg PO DAILY [facility]; Protocol Last Admin: 02/01/22 08:42 Dose: 12.5 mg Documented by: Ipratropium [place] (Ipratropium [place] 1 Puff/17 Mcg Inhaler) 2 puff INHALE BID PRN PRN Reason: Shortness of Breath Last Admin: 01/31/22 19:07 Dose: 2 puff Documented by: Lorazepam (Lorazepam 0.5 Mg Tablet) 0.25 mg PO TID PRN PRN Reason: anxiety Last Admin: 02/01/22 02:51 Dose: 0.25 mg Documented by: Magnesium Hydroxide (Milk Of Magnesia 30 Ml Oral.Susp) 30 ml PO DAILY PRN PRN Reason: Constipation Multivitamins/Vitamin C (Multivitamin Tablet) 1 tab PO DAILY [facility] Last Admin: 02/01/22 08:43 Dose: 1 tab Documented by: Nicotine Polacrilex (Nicotine Polacrilex Lozenge 2 Mg Lozenge) 2 mg BUCCAL Q2H PRN PRN Reason: nictotine craving Omeprazole (Omeprazole 20 Mg Kenneth.) 20 mg PO DAILY@0630 [facility] Last Admin: 02/01/22 06:06 Dose: 20 mg Documented by: Thiamine HCl (Thiamine Hcl 100 Mg Tablet) 100 mg PO DAILY [facility] Last Admin: 02/01/22 08:42 Dose: 100 mg Documented by: Valsartan (Valsartan 80 Mg Tablet) 80 mg PO DAILY [facility]; Protocol Last Admin: 02/01/22 08:42 Dose: 80 mg Documented by: Allergies Allergies Allergy/AdvReac Type Severity Reaction Status Date / Time sertraline Allergy Unknown Verified 01/28/22 20:02 cefuroxime [From Ceftin] AdvReac Stomach Verified 01/28/22 20:01 Upset oxycodone AdvReac Anxiety Verified 01/28/22 20:02 bet AdvReac Palpitation Uncoded 01/28/22 19:59 s Assessment & Plan Assessment & Plan (1) MDD (major depressive disorder), recurrent episode, moderate: Status: Acute Code(s): F33.1 - Major depressive disorder, recurrent, moderate Plan Patient is a 76-year-old female with history of mild to moderate depression, stroke, COPD, hypertension, b/l tremor who presents for worsening depression in the face of psychosocial stressors including of her best friend. Patient says that up until the past few months she was her normal self, overall doing well, driving her son to work every morning, going to the store, doing laundry and other household work and pain her own bills. However, her best friend 1 year ago this past October and patient feels that this loss is a significant part of her depression. Patient endorses numerous symptoms of depression, poor attention to ADLs, sleeping all day and eating very little; she has intermittent passive wish but no active SI. Patient has been on Lexapro for years which she reports has been helpful. Recently stopped on gabapentin and Ativan out of concern could be contributing to her depression. Patient would like medication management to help with her symptoms. 01/31 patient remains depressed; will likely start Wellbutrin however patient and her daughter wanted to make sure that her past medical records from [facility] reviewed prior to starting this medication to which fiction and nonfiction writer prose agreed. Currently nursing staff is seeking to obtain these records. 02/01 patient to be transferred to geriatric unit Some additional information provided by her daughter Kriss who visited patient on admission and reported -Patient has a history of colon polyps and history of GI bleed -She was also discontinued from Ativan for this same reason; also discontinued from iron supplements -Records indicate patient has been prescribed Remeron in the past PLAN: CV Q 15 minute checks TRANSFER TO GERIATRIC FLOOR ON 02/01 1. Depression: -Continue Lexapro 20 mg daily -Likely start Wellbutrin which is good for helping with activation; just waiting for medical history from [facility] (past trial of mirtazapine); pt has ILR from 2019 -Ca and TSH WNL 2. Normocytic anemia H&H has been slowly trending down during this admission; will follow. She has only been off iron for a week making is an unlikely cause; also it is not microcytic anemia -occult stool test + -H&H stable -B12 WNL -Foloate WNL GI Consult on 02/01 IMPRESSION:? Anemia with Hemoccult-positive stools.? At this time, she appears quite stable with no evidence of active ongoing bleeding.? She likely has some component of gastrointestinal blood loss from her angioectasias, and I discussed this with her.? I would recommend continuing a proton pump inhibitor and following her hematocrit.? I discussed with her that I would recommend she call Dr. Weathers's office after discharge from the inpatient psychiatric unit to see if they can accommodate her for her followup studies in a timely manner. 3. Mild Electrolyte imbalance -sodium low on admission; -Na mildly low -K back to normal Reviewed medical hx from [facility] 4. Chronic conditions: Continue home medications pt has ILR from 2019 CAD COPD CVA hx of Colonic Polyp and GI bleed Migraine Tremor: gabapentin for tremor? PCP dc'd gabapentin about a week ago out of concern that it could affect depression; daughter thinks that patient's tremor is actually better off the gabapentin HTN Other I spent minutes with the patient and/or on the patient floor today, greater than?50% of which was spent counseling/coordinating care. Patient educated on: medical condition Informed Consent: understands Reason for contiued inpatient stay Substantial Risk for: rapid decompensation
--- NOTE | 2022-02-01 14:23 | PC.NURSE ---
Patient arrived on unit w/ staff from [facility]; briefly oriented to unit. Patient is alert, oriented x3. Reports chronic pain right arm, left shoulder. Denies any other discomfort at this time, denies any concerns w/ bowels or bladder. States she is here for depression r/t pain, but denies SI at this time. Patient requested to rest at this time, but is aware of dining area and other options.
[2022-02-01 14:26] VITALS: BP 102/53; PULSE 65; RESP 18; TEMP 36.8; O2SAT 96
[2022-02-01] MEDS: buPROPion HCL 75 MG TABLET PO (16:41)
[2022-02-01 19:58] VITALS: BP 97/50; PULSE 65; RESP 19; TEMP 36.9; O2SAT 96
[2022-02-01] MEDS: Clopidogrel Bisulfate 75 MG TABLET PO (20:07)
[2022-02-01] MEDS: Atorvastatin Calcium 80 MG TABLET PO (20:07)
[2022-02-02] MEDS: Ipratropium Bromide 1 PUFF/17 MCG INHALER 2 PUFF INHALE ×2 (00:37→11:12)
[2022-02-02 06:00] VITALS: BP 128/80; PULSE 82; RESP 16; TEMP 36.6; O2SAT 97
[2022-02-02] MEDS: Omeprazole 20 MG CAPSULE.DR PO (06:40)
[2022-02-02] MEDS: hydroCHLOROthiazide 12.5 MG TABLET PO (10:00)
[2022-02-02] MEDS: Multivitamin TABLET 1 TAB PO (10:00)
[2022-02-02] MEDS: Cyanocobalamin (Vitamin B-12) 100 MCG TABLET PO (10:00)
[2022-02-02] MEDS: amLODIPine Besylate 10 MG TABLET PO (10:00)
[2022-02-02] MEDS: Thiamine HCL 100 MG TABLET PO (10:00)
[2022-02-02] MEDS: buPROPion HCL 75 MG TABLET PO ×2 (10:01→16:36)
[2022-02-02] MEDS: Escitalopram Oxalate 20 MG TABLET PO (10:01)
[2022-02-02] MEDS: Valsartan 80 MG TABLET PO (10:01)
--- NOTE | 2022-02-02 14:04 | HO.PSYCHPN ---
Subjective Subjective Date of Service: 02/02/22 Reason For Visit: disorganized Subjective Notes: Conditional Voluntary Interim History: The nursing staff reported the patient has a very bad night last night, she could not sleep and she was up without p.r.n. for night. The mental health social worker met with her son the patient and apparently the patient was highly functional in the past but later she had strokes and her mood worsened. On interview, the patient reports that she feels tired, she agreed to start Wellbutrin to target depression in addition to her Lexapro. Mental Status Exam Mental Status Exam Patient Appearance: Appropriate Patient Orientation: Person and Situation Level of Consciousness: Awake Patient Behavior: Cooperative Mood Description: Withdrawn and Depressed Affect Description: Constricted Patient Cognition Impaired: No Ability to Follow Directions: Good Speech Pattern: Clear Hallucinations: None Delusions: Not Present Thought Process: Linear Thought Content: positive for Circumstantial Judgement: Fair Diagnostics Vital Signs (24Hr): Vital Signs - 24 hr 02/01/22 14:26 02/01/22 19:58 02/02/22 06:00 Temperature 98.2 F 98.5 F 97.9 F Pulse Rate 65 65 82 Respiratory Rate 18 19 16 Blood Pressure 102/53 L 97/50 L 128/80 Pulse Oximetry 96 96 97 BMI result Body Mass Index 20.5 Labs Results: 02/01/22 11:13 02/01/22 11:10 Labs: Laboratory Results - last 48 hr 02/01/22 02/01/22 11:10 11:13 WBC 5.7 RBC 3.89 L Hgb 10.6 L Hct 31.7 L MCV 81.5 MCH 27.2 MCHC 33.4 RDW 13.8 Plt Count 263 MPV 9.9 Immature Gran % (Auto) 0.2 Neut % (Auto) 66.6 Lymph % (Auto) 15.2 L [place] % (Auto) 14.5 H Eos % (Auto) 3.0 Baso % (Auto) 0.5 Lymph # (Auto) 0.9 L [place] # (Auto) 0.8 Eos # (Auto) 0.2 Baso # (Auto) 0.0 Abs Immat Gran (auto) 0.01 Absolute Neuts (auto) 3.8 Absolute Nucleated RBC 0.000 Nucleated RBC % (auto) 0.0 Sodium 133 L Potassium 3.3 Chloride 95 L Carbon Dioxide 31 H Anion Gap 10 L BUN 11 Creatinine 0.65 Estim Creat Clear Calc 63.2 Estimated GFR > 60 Medications Medications Current Medications Acetaminophen (Acetaminophen 325 Mg Tablet) 650 mg PO Q6H PRN PRN Reason: mild pain Last Admin: 02/01/22 23:37 Dose: 650 mg Documented by: Al Hydroxide/Mg Hydroxide (Magnesium Hydrox/Alum Hydrox 30 Ml Oral.Susp) 30 ml PO Q6H PRN PRN Reason: Heartburn/Nausea Amlodipine Besylate (Amlodipine Besylate 10 Mg Tablet) 10 mg PO DAILY [facility]; Protocol Last Admin: 02/02/22 10:00 Dose: 10 mg Documented by: Atorvastatin Calcium (Atorvastatin Calcium 80 Mg Tablet) 80 mg PO BEDTIME [facility] Last Admin: 02/01/22 20:07 Dose: 80 mg Documented by: Bupropion HCl (Bupropion Hcl 75 Mg Tablet) 75 mg PO BID@0800,1700 [facility] Last Admin: 02/02/22 10:01 Dose: 75 mg Documented by: Clopidogrel Bisulfate (Clopidogrel Bisulfate 75 Mg Tablet) 75 mg PO BEDTIME [facility] Last Admin: 02/01/22 20:07 Dose: 75 mg Documented by: Cyanocobalamin (Cyanocobalamin (Vitamin B-12) 100 Mcg Tablet) 100 mcg PO DAILY [facility] Last Admin: 02/02/22 10:00 Dose: 100 mcg Documented by: Escitalopram Oxalate (Escitalopram Oxalate 20 Mg Tablet) 20 mg PO DAILY [facility] Last Admin: 02/02/22 10:01 Dose: 20 mg Documented by: Hydrochlorothiazide (Hydrochlorothiazide 12.5 Mg Tablet) 12.5 mg PO DAILY [facility]; Protocol Last Admin: 02/02/22 10:00 Dose: 12.5 mg Documented by: Ipratropium [place] (Ipratropium [place] 1 Puff/17 Mcg Inhaler) 2 puff INHALE BID PRN PRN Reason: Shortness of Breath Last Admin: 02/02/22 11:12 Dose: 2 puff Documented by: Lorazepam (Lorazepam 0.5 Mg Tablet) 0.25 mg PO TID PRN PRN Reason: anxiety Last Admin: 02/01/22 23:35 Dose: 0.25 mg Documented by: Magnesium Hydroxide (Milk Of Magnesia 30 Ml Oral.Susp) 30 ml PO DAILY PRN PRN Reason: Constipation Multivitamins/Vitamin C (Multivitamin Tablet) 1 tab PO DAILY [facility] Last Admin: 02/02/22 10:00 Dose: 1 tab Documented by: Nicotine Polacrilex (Nicotine Polacrilex Lozenge 2 Mg Lozenge) 2 mg BUCCAL Q2H PRN PRN Reason: nictotine craving Omeprazole (Omeprazole 20 Mg Capsule.) 20 mg PO DAILY@0630 [facility] Last Admin: 02/02/22 06:40 Dose: 20 mg Documented by: Thiamine HCl (Thiamine Hcl 100 Mg Tablet) 100 mg PO DAILY [facility] Last Admin: 02/02/22 10:00 Dose: 100 mg Documented by: Valsartan (Valsartan 80 Mg Tablet) 80 mg PO DAILY [facility]; Protocol Last Admin: 02/02/22 10:01 Dose: 80 mg Documented by: Allergies Allergies Allergy/AdvReac Type Severity Reaction Status Date / Time sertraline Allergy Unknown Verified 01/28/22 20:02 cefuroxime [From Ceftin] AdvReac Stomach Verified 01/28/22 20:01 Upset oxycodone AdvReac Anxiety Verified 01/28/22 20:02 bet AdvReac Palpitation Uncoded 01/28/22 19:59 s Assessment & Plan Assessment & Plan (1) MDD (major depressive disorder), recurrent episode, moderate: Status: Acute Code(s): F33.1 - Major depressive disorder, recurrent, moderate Plan Patient is a 76-year-old female with history of mild to moderate depression, stroke, COPD, hypertension, b/l tremor who presents for worsening depression in the face of psychosocial stressors including of her best friend. Patient says that up until the past few months she was her normal self, overall doing well, driving her son to work every morning, going to the store, doing laundry and other household work and pain her own bills. However, her best friend 1 year ago this past October and patient feels that this loss is a significant part of her depression. Patient endorses numerous symptoms of depression, poor attention to ADLs, sleeping all day and eating very little; she has intermittent passive wish but no active SI. Patient has been on Lexapro for years which she reports has been helpful. Recently stopped on gabapentin and Ativan out of concern could be contributing to her depression. Patient would like medication management to help with her symptoms. 01/31 patient remains depressed; will likely start Wellbutrin however patient and her daughter wanted to make sure that her past medical records from [facility] reviewed prior to starting this medication to which jingle writer agreed. Currently nursing staff is seeking to obtain these records. 02/01 patient to be transferred to geriatric unit Some additional information provided by her daughter Kriss who visited patient on admission and reported -Patient has a history of colon polyps and history of GI bleed -She was also discontinued from Ativan for this same reason; also discontinued from iron supplements -Records indicate patient has been prescribed Remeron in the past PLAN: CV Q 15 minute checks TRANSFER TO GERIATRIC FLOOR ON 02/01 1. Depression: -Continue Lexapro 20 mg daily -Start Wellbutrin which is good for helping with activation -Ca and TSH WNL 2. Normocytic anemia H&H has been slowly trending down during this admission; will follow. She has only been off iron for a week making is an unlikely cause; also it is not microcytic anemia -occult stool test + -H&H stable -B12 WNL -Foloate WNL GI Consult on 02/01 IMPRESSION:? Anemia with Hemoccult-positive stools.? At this time, she appears quite stable with no evidence of active ongoing bleeding.? She likely has some component of gastrointestinal blood loss from her angioectasias, and I discussed this with her.? I would recommend continuing a proton pump inhibitor and following her hematocrit.? I discussed with her that I would recommend she call Dr. Weathers's office after discharge from the inpatient psychiatric unit to see if they can accommodate her for her followup studies in a timely manner. 3. Mild Electrolyte imbalance -sodium low on admission; -Na mildly low -K back to normal Reviewed medical hx from [facility] 4. Chronic conditions: Continue home medications pt has ILR from 2019 CAD COPD CVA hx of Colonic Polyp and GI bleed Migraine Tremor: gabapentin for tremor? PCP dc'd gabapentin about a week ago out of concern that it could affect depression; daughter thinks that patient's tremor is actually better off the gabapentin HTN Other I spent minutes with the patient and/or on the patient floor today, greater than?50% of which was spent counseling/coordinating care. Reason for contiued inpatient stay Substantial Risk for: inability to function, rapid decompensation and med/psych decompensation
[2022-02-02] MEDS: Acetaminophen 325 MG TABLET 650 MG PO (16:35)
[2022-02-02 18:00] VITALS: BP 99/55; PULSE 70; RESP 16; TEMP 36.6; O2SAT 97
[2022-02-02] MEDS: Atorvastatin Calcium 80 MG TABLET PO (20:37)
[2022-02-02] MEDS: Clopidogrel Bisulfate 75 MG TABLET PO (20:37)
[2022-02-02] MEDS: traZODone HCL 100 MG TABLET PO (20:42)
[2022-02-02] MEDS: LORazepam 0.5 MG TABLET 0.25 MG PO (22:40)
[2022-02-03] MEDS: Omeprazole 20 MG CAPSULE.DR PO (06:25)
[2022-02-03 08:22] VITALS: BP 104/52; PULSE 69; RESP 14; TEMP 36.3; O2SAT 93
[2022-02-03] MEDS: amLODIPine Besylate 10 MG TABLET PO (08:41)
[2022-02-03] MEDS: buPROPion HCL 75 MG TABLET PO ×2 (08:41→17:58)
[2022-02-03] MEDS: Multivitamin TABLET 1 TAB PO (08:42)
[2022-02-03] MEDS: hydroCHLOROthiazide 12.5 MG TABLET PO (08:42)
[2022-02-03] MEDS: Thiamine HCL 100 MG TABLET PO (08:42)
[2022-02-03] MEDS: Escitalopram Oxalate 20 MG TABLET PO (08:42)
[2022-02-03] MEDS: Valsartan 80 MG TABLET PO (08:42)
[2022-02-03] MEDS: Cyanocobalamin (Vitamin B-12) 100 MCG TABLET PO (08:43)
--- NOTE | 2022-02-03 12:58 | P.PNPSI_ITS ---
Subjective Subjective Date of Service: 02/03/22 Reason For Visit: disorganized Subjective Notes: Conditional Voluntary Interim History: Pt reports she still feels tired and is still having trouble sleeping; she reports appetite low. she is cooperative and pleasant. Medication Compliance: Yes Side effects from medications: No Attending Groups: Yes Review of Systems Acute medical concerns: No Medical Review of Systems: unchanged Review of Systems Review of Systems Constitutional: No Fever, No Chills, + Fatigue, + Malaise, +anorexia ENT/Mouth: No Ear Pain, No Nasal Congestion, No Sinus Pain, No sore throat, No Swallowing Difficulty Eyes: No Eye Pain, No Swelling, No Redness Cardiovascular: No Chest Pain, No SOB, No Edema, No Palpitations Respiratory: No Cough, No Sputum, No Dyspnea Gastrointestinal: No Nausea, No Vomiting, No Diarrhea, No Constipation, No Abdominal pain Genitourinary: No Dysuria, No Urinary Frequency, No Hematuria, No Flank Pain Musculoskeletal: No joint pain, No Myalgias, No Joint Swelling Skin: No Skin Lesions, No rash Neuro: No Weakness, No Dizziness, No Headache Psych: No Anxiety/Panic, + Depression, No SI/HI/AH/VH Yes all other systems are reviewed and are negative Mental Status Exam Mental Status Exam Narrative: Pt is alert and oriented; behavior is cooperative and calm; patient is not in distress; neatly dressed in her own clothing, hygiene good; mood is described as ok but affect blunted and downcast; reduced eye contact;? Speech is normal rate, volume and prosody and not pressured;?psychomotor retardation present; thought process is organized and goal directed; Thought content on having no e nergy, No delusional content, no paranoid ideations or grandiosity; intermittent passive wish, otherwise denies any SI/HI. There is no evidence of perceptual disturbance.? Patients insight and judgment are impaired. Patient Appearance: Appropriate Patient Orientation: Person and Situation Level of Consciousness: Awake Patient Behavior: Cooperative Mood Description: Withdrawn and Depressed Affect Description: Constricted Patient Cognition Impaired: No Ability to Follow Directions: Good Speech Pattern: Clear Diagnostics Vital Signs (24Hr): Vital Signs - 24 hr 02/02/22 18:00 02/03/22 08:22 Temperature 97.8 F 97.4 F Pulse Rate 70 69 Respiratory Rate 16 14 Blood Pressure 99/55 L 104/52 L Pulse Oximetry 97 93 BMI result Body Mass Index 20.5 Labs Results: 02/01/22 11:13 02/01/22 11:10 Medications Medications Current Medications Acetaminophen (Acetaminophen 325 Mg Tablet) 650 mg PO Q6H PRN PRN Reason: mild pain Last Admin: 02/02/22 16:35 Dose: 650 mg Documented by: Al Hydroxide/Mg Hydroxide (Magnesium Hydrox/Alum Hydrox 30 Ml Oral.Susp) 30 ml PO Q6H PRN PRN Reason: Heartburn/Nausea Amlodipine Besylate (Amlodipine Besylate 10 Mg Tablet) 10 mg PO DAILY [facility]; Protocol Last Admin: 02/03/22 08:41 Dose: 10 mg Documented by: Atorvastatin Calcium (Atorvastatin Calcium 80 Mg Tablet) 80 mg PO BEDTIME [facility] Last Admin: 02/02/22 20:37 Dose: 80 mg Documented by: Bupropion HCl (Bupropion Hcl 75 Mg Tablet) 75 mg PO BID@0800,1700 [facility] Last Admin: 02/03/22 08:41 Dose: 75 mg Documented by: Clopidogrel Bisulfate (Clopidogrel Bisulfate 75 Mg Tablet) 75 mg PO BEDTIME [facility] Last Admin: 02/02/22 20:37 Dose: 75 mg Documented by: Cyanocobalamin (Cyanocobalamin (Vitamin B-12) 100 Mcg Tablet) 100 mcg PO DAILY [facility] Last Admin: 02/03/22 08:43 Dose: 100 mcg Documented by: Escitalopram Oxalate (Escitalopram Oxalate 20 Mg Tablet) 20 mg PO DAILY [facility] Last Admin: 02/03/22 08:42 Dose: 20 mg Documented by: Hydrochlorothiazide (Hydrochlorothiazide 12.5 Mg Tablet) 12.5 mg PO DAILY [facility]; Protocol Last Admin: 02/03/22 08:42 Dose: 12.5 mg Documented by: Ipratropium [place] (Ipratropium [place] 1 Puff/17 Mcg Inhaler) 2 puff INHALE BID PRN PRN Reason: Shortness of Breath Last Admin: 02/02/22 11:12 Dose: 2 puff Documented by: Lorazepam (Lorazepam 0.5 Mg Tablet) 0.25 mg PO TID PRN PRN Reason: anxiety Last Admin: 02/02/22 22:40 Dose: 0.25 mg Documented by: Magnesium Hydroxide (Milk Of Magnesia 30 Ml Oral.Susp) 30 ml PO DAILY PRN PRN Reason: Constipation Multivitamins/Vitamin C (Multivitamin Tablet) 1 tab PO DAILY [facility] Last Admin: 02/03/22 08:42 Dose: 1 tab Documented by: Nicotine Polacrilex (Nicotine Polacrilex Lozenge 2 Mg Lozenge) 2 mg BUCCAL Q2H PRN PRN Reason: nictotine craving Omeprazole (Omeprazole 20 Mg Capsule.) 20 mg PO DAILY@0630 [facility] Last Admin: 02/03/22 06:25 Dose: 20 mg Documented by: Thiamine HCl (Thiamine Hcl 100 Mg Tablet) 100 mg PO DAILY [facility] Last Admin: 02/03/22 08:42 Dose: 100 mg Documented by: Trazodone HCl (Trazodone Hcl 100 Mg Tablet) 100 mg PO BEDTIME PRN PRN Reason: insomnia Last Admin: 02/02/22 20:42 Dose: 100 mg Documented by: Valsartan (Valsartan 80 Mg Tablet) 80 mg PO DAILY [facility]; Protocol Last Admin: 02/03/22 08:42 Dose: 80 mg Documented by: Allergies Allergies Allergy/AdvReac Type Severity Reaction Status Date / Time sertraline Allergy Unknown Verified 01/28/22 20:02 cefuroxime [From Ceftin] AdvReac Stomach Verified 01/28/22 20:01 Upset oxycodone AdvReac Anxiety Verified 01/28/22 20:02 bet AdvReac Palpitation Uncoded 01/28/22 19:59 s Assessment & Plan Assessment & Plan (1) MDD (major depressive disorder), recurrent episode, moderate: Status: Acute Code(s): F33.1 - Major depressive disorder, recurrent, moderate Plan Patient is a 76-year-old female with history of mild to moderate depression, stroke, COPD, hypertension, b/l tremor who presents for worsening depression in the face of psychosocial stressors including of her best friend. Patient says that up until the past few months she was her normal self, overall doing well, driving her son to work every morning, going to the store, doing laundry and other household work and pain her own bills. However, her best friend 1 year ago this past October and patient feels that this loss is a significant part of her depression. Patient endorses numerous symptoms of depression, poor attention to ADLs, sleeping all day and eating very little; she has intermittent passive wish but no active SI. Patient has been on Lexapro for years which she reports has been helpful. Recently stopped on gabapentin and Ativan out of concern could be contributing to her depression. Patient would like medication management to help with her symptoms. 1. Depression: -Continue Lexapro 20 mg daily Continue Wellbutrin which is good for helping with activation -Ca and TSH WNL 2. Normocytic anemia H&H has been slowly trending down during this admission; will follow. She has only been off iron for a week making is an unlikely cause; also it is not microcytic anemia -occult stool test + -H&H stable -B12 WNL -Foloate WNL GI Consult on 02/01 IMPRESSION:? Anemia with Hemoccult-positive stools.? At this time, she appears quite stable with no evidence of active ongoing bleeding.? She likely has some component of gastrointestinal blood loss from her angioectasias, and I discussed this with her.? I would recommend continuing a proton pump inhibitor and following her hematocrit.? I discussed with her that I would recommend she call Dr. Weathers's office after discharge from the inpatient psychiatric unit to see if they can accommodate her for her followup studies in a timely manner. 3. Mild Electrolyte imbalance -sodium low on admission; -Na mildly low -K back to normal Reviewed medical hx from [facility] 4. Chronic conditions: Continue home medications pt has ILR from 2019 CAD COPD CVA hx of Colonic Polyp and GI bleed Migraine Tremor: gabapentin for tremor? PCP dc'd gabapentin about a week ago out of concern that it could affect depression; daughter thinks that patient's tremor is actually better off the gabapentin HTN Other 02/03/22 continue current treatment plan, encourage fluids and food intake I spent minutes with the patient and/or on the patient floor today, greater than?50% of which was spent counseling/coordinating care. Reason for contiued inpatient stay Substantial Risk for: harm to self, inability to function, rapid decompensation and med/psych decompensation
[2022-02-03 18:00] VITALS: BP 96/49; PULSE 77; RESP 16; TEMP 36.5; O2SAT 97
[2022-02-03] MEDS: Atorvastatin Calcium 80 MG TABLET PO (19:54)
[2022-02-03] MEDS: Clopidogrel Bisulfate 75 MG TABLET PO (19:54)
[2022-02-03] MEDS: Ipratropium Bromide 1 PUFF/17 MCG INHALER 2 PUFF INHALE (20:43)
[2022-02-04] MEDS: traZODone HCL 100 MG TABLET PO (00:31)
[2022-02-04] MEDS: Omeprazole 20 MG CAPSULE.DR PO (06:20)
[2022-02-04 08:00] VITALS: BP 94/49; PULSE 82; RESP 16; TEMP 36.6; O2SAT 96
[2022-02-04] MEDS: hydroCHLOROthiazide 12.5 MG TABLET PO (12:03)
[2022-02-04] MEDS: buPROPion HCL 75 MG TABLET PO ×2 (12:03→16:24)
[2022-02-04] MEDS: Valsartan 80 MG TABLET PO (12:03)
[2022-02-04] MEDS: Multivitamin TABLET 1 TAB PO (12:03)
[2022-02-04] MEDS: Escitalopram Oxalate 20 MG TABLET PO (12:03)
[2022-02-04] MEDS: amLODIPine Besylate 10 MG TABLET PO (12:03)
[2022-02-04] MEDS: Thiamine HCL 100 MG TABLET PO (12:04)
[2022-02-04] MEDS: Cyanocobalamin (Vitamin B-12) 100 MCG TABLET PO (12:04)
--- NOTE | 2022-02-04 15:12 | P.PNPSI_ITS ---
Subjective Subjective Date of Service: 02/04/22 Reason For Visit: disorganized Subjective Notes: Conditional Voluntary Interim History: Pt reports she still feels tired and is still having trouble sleeping; she reports appetite low. she is cooperative and pleasant. Medication Compliance: Yes Side effects from medications: No Attending Groups: Intermittent Review of Systems Acute medical concerns: No Medical Review of Systems: unchanged Review of Systems Review of Systems Constitutional: No Fever, No Chills, + Fatigue, + Malaise, +anorexia ENT/Mouth: No Ear Pain, No Nasal Congestion, No Sinus Pain, No sore throat, No Swallowing Difficulty Eyes: No Eye Pain, No Swelling, No Redness Cardiovascular: No Chest Pain, No SOB, No Edema, No Palpitations Respiratory: No Cough, No Sputum, No Dyspnea Gastrointestinal: No Nausea, No Vomiting, No Diarrhea, No Constipation, No Abdominal pain Genitourinary: No Dysuria, No Urinary Frequency, No Hematuria, No Flank Pain Musculoskeletal: No joint pain, No Myalgias, No Joint Swelling Skin: No Skin Lesions, No rash Neuro: No Weakness, No Dizziness, No Headache Psych: No Anxiety/Panic, + Depression, No SI/HI/AH/VH Yes all other systems are reviewed and are negative Mental Status Exam Mental Status Exam Narrative: Pt is alert and oriented; cooperative, calm; patient is not in distress; neatly dressed in her own clothing, hygiene good; mood is dysthymic, affect blunted and downcast; reduced eye contact;? Speech is normal rate, volume and prosody and not pressured;?psychomotor retardation present; thought process is organized and goal directed; Thought content on having no energy, No delusional content, no paranoid ideations or grandiosity; intermittent passive wish, otherwise denies any SI/HI. There is no evidence of perceptual disturbance.? Patients insight and judgment are impaired. Patient Appearance: Appropriate Patient Orientation: Person and Situation Level of Consciousness: Awake Patient Behavior: Cooperative Mood Description: Withdrawn and Depressed Affect Description: Constricted Patient Cognition Impaired: No Ability to Follow Directions: Good Speech Pattern: Clear Diagnostics Vital Signs (24Hr): Vital Signs - 24 hr 02/03/22 18:00 02/04/22 08:00 Temperature 97.7 F 97.9 F Pulse Rate 77 82 Respiratory Rate 16 16 Blood Pressure 96/49 L 94/49 L Pulse Oximetry 97 96 BMI result Body Mass Index 20.5 Labs Results: 02/01/22 11:13 02/01/22 11:10 Medications Medications Current Medications Acetaminophen (Acetaminophen 325 Mg Tablet) 650 mg PO Q6H PRN PRN Reason: mild pain Last Admin: 02/02/22 16:35 Dose: 650 mg Documented by: Al Hydroxide/Mg Hydroxide (Magnesium Hydrox/Alum Hydrox 30 Ml Oral.Susp) 30 ml PO Q6H PRN PRN Reason: Heartburn/Nausea Amlodipine Besylate (Amlodipine Besylate 10 Mg Tablet) 10 mg PO DAILY [facility]; Protocol Last Admin: 02/04/22 12:03 Dose: 10 mg Documented by: Atorvastatin Calcium (Atorvastatin Calcium 80 Mg Tablet) 80 mg PO BEDTIME [facility] Last Admin: 02/03/22 19:54 Dose: 80 mg Documented by: Bupropion HCl (Bupropion Hcl 75 Mg Tablet) 75 mg PO BID@0800,1700 [facility] Last Admin: 02/04/22 12:03 Dose: 75 mg Documented by: Clopidogrel Bisulfate (Clopidogrel Bisulfate 75 Mg Tablet) 75 mg PO BEDTIME [facility] Last Admin: 02/03/22 19:54 Dose: 75 mg Documented by: Cyanocobalamin (Cyanocobalamin (Vitamin B-12) 100 Mcg Tablet) 100 mcg PO DAILY [facility] Last Admin: 02/04/22 12:04 Dose: 100 mcg Documented by: Escitalopram Oxalate (Escitalopram Oxalate 20 Mg Tablet) 20 mg PO DAILY [facility] Last Admin: 02/04/22 12:03 Dose: 20 mg Documented by: Hydrochlorothiazide (Hydrochlorothiazide 12.5 Mg Tablet) 12.5 mg PO DAILY [facility]; Protocol Last Admin: 02/04/22 12:03 Dose: 12.5 mg Documented by: Ipratropium [place] (Ipratropium [place] 1 Puff/17 Mcg Inhaler) 2 puff INHALE BID PRN PRN Reason: Shortness of Breath Last Admin: 02/03/22 20:43 Dose: 2 puff Documented by: Magnesium Hydroxide (Milk Of Magnesia 30 Ml Oral.Susp) 30 ml PO DAILY PRN PRN Reason: Constipation Multivitamins/Vitamin C (Multivitamin Tablet) 1 tab PO DAILY [facility] Last Admin: 02/04/22 12:03 Dose: 1 tab Documented by: Nicotine Polacrilex (Nicotine Polacrilex Lozenge 2 Mg Lozenge) 2 mg BUCCAL Q2H PRN PRN Reason: nictotine craving Omeprazole (Omeprazole 20 Mg Capsule.) 20 mg PO DAILY@0630 [facility] Last Admin: 02/04/22 06:20 Dose: 20 mg Documented by: Thiamine HCl (Thiamine Hcl 100 Mg Tablet) 100 mg PO DAILY [facility] Last Admin: 02/04/22 12:04 Dose: 100 mg Documented by: Trazodone HCl (Trazodone Hcl 100 Mg Tablet) 100 mg PO BEDTIME PRN PRN Reason: insomnia Last Admin: 02/04/22 00:31 Dose: 100 mg Documented by: Valsartan (Valsartan 80 Mg Tablet) 80 mg PO DAILY [facility]; Protocol Last Admin: 02/04/22 12:03 Dose: 80 mg Documented by: Allergies Allergies Allergy/AdvReac Type Severity Reaction Status Date / Time sertraline Allergy Unknown Verified 01/28/22 20:02 cefuroxime [From Ceftin] AdvReac Stomach Verified 01/28/22 20:01 Upset oxycodone AdvReac Anxiety Verified 01/28/22 20:02 bet AdvReac Palpitation Uncoded 01/28/22 19:59 s Assessment & Plan Assessment & Plan (1) MDD (major depressive disorder), recurrent episode, moderate: Status: Acute Code(s): F33.1 - Major depressive disorder, recurrent, moderate Plan Patient is a 76-year-old female with history of mild to moderate depression, stroke, COPD, hypertension, b/l tremor who presents for worsening depression in the face of psychosocial stressors including of her best friend. Patient says that up until the past few months she was her normal self, overall doing well, driving her son to work every morning, going to the store, doing laundry and other household work and pain her own bills. However, her best friend 1 year ago this past October and patient feels that this loss is a significant part of her depression. Patient endorses numerous symptoms of depression, poor attention to ADLs, sleeping all day and eating very little; she has intermittent passive wish but no active SI. Patient has been on Lexapro for years which she reports has been helpful. Recently stopped on gabapentin and Ativan out of concern could be contributing to her depression. Patient would like medication management to help with her symptoms. 1. Depression: -Continue Lexapro 20 mg daily Continue Wellbutrin which is good for helping with activation -Ca and TSH WNL 2. Normocytic anemia H&H has been slowly trending down during this admission; will follow. She has only been off iron for a week making is an unlikely cause; also it is not microcytic anemia -occult stool test + -H&H stable -B12 WNL -Foloate WNL GI Consult on 02/01 IMPRESSION:? Anemia with Hemoccult-positive stools.? At this time, she appears quite stable with no evidence of active ongoing bleeding.? She likely has some component of gastrointestinal blood loss from her angioectasias, and I discussed this with her.? I would recommend continuing a proton pump inhibitor and following her hematocrit.? I discussed with her that I would recommend she call Dr. Weathers's office after discharge from the inpatient psychiatric unit to see if they can accommodate her for her followup studies in a timely manner. 3. Mild Electrolyte imbalance -sodium low on admission; -Na mildly low -K back to normal Reviewed medical hx from [facility] 4. Chronic conditions: Continue home medications pt has ILR from 2019 CAD COPD CVA hx of Colonic Polyp and GI bleed Migraine Tremor: gabapentin for tremor? PCP dc'd gabapentin about a week ago out of concern that it could affect depression; daughter thinks that patient's tremor is actually better off the gabapentin HTN Other 02/03/22 continue current treatment plan, encourage fluids and food intake 02/04/22 continue current treatment plan I spent minutes with the patient and/or on the patient floor today, greater than?50% of which was spent counseling/coordinating care. Reason for contiued inpatient stay Substantial Risk for: inability to function and rapid decompensation
[2022-02-04 16:48] VITALS: BP 88/49; PULSE 81; RESP 16; TEMP 36.4; O2SAT 97
[2022-02-04] MEDS: Clopidogrel Bisulfate 75 MG TABLET PO (19:27)
[2022-02-04] MEDS: Atorvastatin Calcium 80 MG TABLET PO (19:27)
--- NOTE | 2022-02-04 23:08 | PC.ADMIT ---
Pt alert and oriented X3. Vitals taken at 6pm recorded low BP:88/46, no symptoms, process control operator provider called, new orders: Valsartan (Diovan) 80mg Po daily decreased to 40mg PO daily. Recheck BP at 8pm recorded 106/58.
[2022-02-05 06:00] VITALS: BP 113/55; PULSE 80; RESP 16; TEMP 36.2; O2SAT 94
[2022-02-05] MEDS: Multivitamin TABLET 1 TAB PO (09:07)
[2022-02-05] MEDS: Valsartan 40 MG TABLET PO (09:07)
[2022-02-05] MEDS: Thiamine HCL 100 MG TABLET PO (09:07)
[2022-02-05] MEDS: buPROPion HCL 75 MG TABLET PO (09:07)
[2022-02-05] MEDS: Escitalopram Oxalate 20 MG TABLET PO (09:07)
[2022-02-05] MEDS: Omeprazole 20 MG CAPSULE.DR PO (09:07)
[2022-02-05] MEDS: hydroCHLOROthiazide 12.5 MG TABLET PO (09:07)
[2022-02-05] MEDS: Cyanocobalamin (Vitamin B-12) 100 MCG TABLET PO (09:08)
[2022-02-05] MEDS: amLODIPine Besylate 10 MG TABLET PO (09:08)
--- NOTE | 2022-02-05 15:04 | HO.PSYCHPN ---
Subjective Subjective Date of Service: 02/05/22 Reason For Visit: disorganized Subjective Notes: Conditional Voluntary Interim History: the nursing staff reports the patient has been compliant with treatment. She is mostly seclusive and in her room. Her sleep cycle continues to be slightly inverted but last night was the only night that she slept overnight. On interview the patient reports still feeling dysphoric and anxious. Today we had a family meeting and she reported that she still dysphoric no side effects. We discussed risks, benefits, side-effects and alternatives and she agreed increase Wellbutrin up to 100 mg p.o. b.i.d. and increase trazodone for sleep. Mental Status Exam Mental Status Exam Patient Appearance: Well Grooomed Patient Orientation: Person and Situation Level of Consciousness: Awake Patient Behavior: Cooperative Mood Description: Withdrawn and Depressed Affect Description: Constricted Patient Cognition Impaired: No Ability to Follow Directions: Good Speech Pattern: Clear Memory Description: Intact Hallucinations: None Delusions: Not Present Thought Process: Linear Thought Content: positive for [place], positive for [place]um[place] and positive for Poverty of Content Judgement: Fair Diagnostics Vital Signs (24Hr): Vital Signs - 24 hr 02/04/22 16:48 02/05/22 06:00 Temperature 97.6 F 97.2 F Pulse Rate 81 80 Respiratory Rate 16 16 Blood Pressure 88/49 L 113/55 L Pulse Oximetry 97 94 BMI result Body Mass Index 20.5 Labs Results: 02/01/22 11:13 02/01/22 11:10 Medications Medications Current Medications Acetaminophen (Acetaminophen 325 Mg Tablet) 650 mg PO Q6H PRN PRN Reason: mild pain Last Admin: 02/02/22 16:35 Dose: 650 mg Documented by: Al Hydroxide/Mg Hydroxide (Magnesium Hydrox/Alum Hydrox 30 Ml Oral.Susp) 30 ml PO Q6H PRN PRN Reason: Heartburn/Nausea Amlodipine Besylate (Amlodipine Besylate 10 Mg Tablet) 10 mg PO DAILY [facility]; Protocol Last Admin: 02/05/22 09:08 Dose: 10 mg Documented by: Atorvastatin Calcium (Atorvastatin Calcium 80 Mg Tablet) 80 mg PO BEDTIME [facility] Last Admin: 02/04/22 19:27 Dose: 80 mg Documented by: Bupropion HCl (Bupropion Hcl 100 Mg Tablet) 100 mg PO BID@0800,1700 [facility] Clopidogrel Bisulfate (Clopidogrel Bisulfate 75 Mg Tablet) 75 mg PO BEDTIME [facility] Last Admin: 02/04/22 19:27 Dose: 75 mg Documented by: Cyanocobalamin (Cyanocobalamin (Vitamin B-12) 100 Mcg Tablet) 100 mcg PO DAILY [facility] Last Admin: 02/05/22 09:08 Dose: 100 mcg Documented by: Escitalopram Oxalate (Escitalopram Oxalate 20 Mg Tablet) 20 mg PO DAILY [facility] Last Admin: 02/05/22 09:07 Dose: 20 mg Documented by: Hydrochlorothiazide (Hydrochlorothiazide 12.5 Mg Tablet) 12.5 mg PO DAILY [facility]; Protocol Last Admin: 02/05/22 09:07 Dose: 12.5 mg Documented by: Ipratropium [place] (Ipratropium [place] 1 Puff/17 Mcg Inhaler) 2 puff INHALE BID PRN PRN Reason: Shortness of Breath Last Admin: 02/03/22 20:43 Dose: 2 puff Documented by: Lorazepam (Lorazepam 0.5 Mg Tablet) 0.25 mg PO TID PRN PRN Reason: anxiety/restlessness Magnesium Hydroxide (Milk Of Magnesia 30 Ml Oral.Susp) 30 ml PO DAILY PRN PRN Reason: Constipation Multivitamins/Vitamin C (Multivitamin Tablet) 1 tab PO DAILY [facility] Last Admin: 02/05/22 09:07 Dose: 1 tab Documented by: Nicotine Polacrilex (Nicotine Polacrilex Lozenge 2 Mg Lozenge) 2 mg BUCCAL Q2H PRN PRN Reason: nictotine craving Omeprazole (Omeprazole 20 Mg Capsule.Dr) 20 mg PO DAILY@0630 [facility] Last Admin: 02/05/22 09:07 Dose: 20 mg Documented by: Thiamine HCl (Thiamine Hcl 100 Mg Tablet) 100 mg PO DAILY [facility] Last Admin: 02/05/22 09:07 Dose: 100 mg Documented by: Trazodone HCl (Trazodone Hcl 50 Mg Tablet) 150 mg PO BEDTIME PRN PRN Reason: insomnia Valsartan (Valsartan 40 Mg Tablet) 40 mg PO DAILY [facility]; Protocol Last Admin: 02/05/22 09:07 Dose: 40 mg Documented by: Allergies Allergies Allergy/AdvReac Type Severity Reaction Status Date / Time sertraline Allergy Unknown Verified 01/28/22 20:02 cefuroxime [From Ceftin] AdvReac Stomach Verified 01/28/22 20:01 Upset oxycodone AdvReac Anxiety Verified 01/28/22 20:02 bet AdvReac Palpitation Uncoded 01/28/22 19:59 s Assessment & Plan Assessment & Plan (1) MDD (major depressive disorder), recurrent episode, moderate: Status: Acute Code(s): F33.1 - Major depressive disorder, recurrent, moderate Plan Patient is a 76-year-old female with history of mild to moderate depression, stroke, COPD, hypertension, b/l tremor who presents for worsening depression in the face of psychosocial stressors including of her best friend. Patient says that up until the past few months she was her normal self, overall doing well, driving her son to work every morning, going to the store, doing laundry and other household work and pain her own bills. However, her best friend 1 year ago this past October and patient feels that this loss is a significant part of her depression. Patient endorses numerous symptoms of depression, poor attention to ADLs, sleeping all day and eating very little; she has intermittent passive wish but no active SI. Patient has been on Lexapro for years which she reports has been helpful. Recently stopped on gabapentin and Ativan out of concern could be contributing to her depression. Patient would like medication management to help with her symptoms. 1. Depression: - Continue Lexapro 20 mg daily - Increase Wellbutrin up to 100 mg p.o. b.i.d.. - Increase trazodone up to 150 p.o. q.h.s. to target insomnia -Ca and TSH WNL 2. Normocytic anemia H&H has been slowly trending down during this admission; will follow. She has only been off iron for a week making is an unlikely cause; also it is not microcytic anemia -occult stool test + -H&H stable -B12 WNL -Foloate WNL GI Consult on 02/01 IMPRESSION:? Anemia with Hemoccult-positive stools.? At this time, she appears quite stable with no evidence of active ongoing bleeding.? She likely has some component of gastrointestinal blood loss from her angioectasias, and I discussed this with her.? I would recommend continuing a proton pump inhibitor and following her hematocrit.? I discussed with her that I would recommend she call Dr. Weathers's office after discharge from the inpatient psychiatric unit to see if they can accommodate her for her followup studies in a timely manner. 3. Mild Electrolyte imbalance -sodium low on admission; -Na mildly low -K back to normal Reviewed medical hx from [facility] 4. Chronic conditions: Continue home medications pt has ILR from 2019 CAD COPD CVA hx of Colonic Polyp and GI bleed Migraine Tremor: gabapentin for tremor? PCP dc'd gabapentin about a week ago out of concern that it could affect depression; daughter thinks that patient's tremor is actually better off the gabapentin HTN Other I spent ___20___ minutes with the patient and/or on the patient floor today, greater than?50% of which was spent counseling/coordinating care. Reason for contiued inpatient stay Substantial Risk for: inability to function, rapid decompensation and med/psych decompensation
[2022-02-05 20:00] VITALS: BP 136/68; PULSE 85; RESP 18; TEMP 36.8; O2SAT 94
[2022-02-05] MEDS: Atorvastatin Calcium 80 MG TABLET PO (20:06)
[2022-02-05] MEDS: Clopidogrel Bisulfate 75 MG TABLET PO (20:06)
[2022-02-05] MEDS: buPROPion HCL 100 MG TABLET PO (20:07)
[2022-02-05] MEDS: Acetaminophen 325 MG TABLET 650 MG PO (20:10)
[2022-02-05] MEDS: Ipratropium Bromide 1 PUFF/17 MCG INHALER 2 PUFF INHALE (21:09)
[2022-02-05] MEDS: traZODone HCL 50 MG TABLET 150 MG PO (23:27)
[2022-02-05] MEDS: LORazepam 0.5 MG TABLET 0.25 MG PO (23:27)
[2022-02-06] MEDS: Omeprazole 20 MG CAPSULE.DR PO (05:47)
[2022-02-06 06:00] VITALS: BP 115/53; PULSE 71; TEMP 36.8; O2SAT 95
[2022-02-06] MEDS: Multivitamin TABLET 1 TAB PO (08:14)
[2022-02-06] MEDS: hydroCHLOROthiazide 12.5 MG TABLET PO (08:14)
[2022-02-06] MEDS: buPROPion HCL 100 MG TABLET PO ×2 (08:14→18:03)
[2022-02-06] MEDS: Cyanocobalamin (Vitamin B-12) 100 MCG TABLET PO (08:14)
[2022-02-06] MEDS: Escitalopram Oxalate 20 MG TABLET PO (08:14)
[2022-02-06] MEDS: Thiamine HCL 100 MG TABLET PO (08:14)
[2022-02-06] MEDS: amLODIPine Besylate 10 MG TABLET PO (08:14)
[2022-02-06] MEDS: Valsartan 40 MG TABLET PO (08:14)
[2022-02-06] MEDS: Acetaminophen 325 MG TABLET 650 MG PO ×2 (11:52→22:13)
[2022-02-06] MEDS: LORazepam 0.5 MG TABLET 0.25 MG PO (11:53)
--- NOTE | 2022-02-06 12:56 | P.PNPSI_ITS ---
Subjective Subjective Date of Service: 02/06/22 Reason For Visit: disorganized Subjective Notes: Conditional Voluntary Interim History: The nursing staff reports the patient has been isolative in her room, she has been encouraged to get out and participate on groups and other activities but so far her participation has been minimal. On interview the patient denies active suicidal ideation she reports my and anxiety. No side effects with current medications. Mental Status Exam Mental Status Exam Patient Appearance: Well Grooomed Patient Orientation: Person Level of Consciousness: Awake Patient Behavior: Cooperative Mood Description: Depressed Affect Description: Constricted Patient Cognition Impaired: No Ability to Follow Directions: Good Speech Pattern: Clear Memory Description: Intact Hallucinations: None Delusions: Not Present Thought Process: Goal Oriented Thought Content: positive for [place] and positive for Poverty of Content Judgement: Fair Diagnostics Vital Signs (24Hr): Vital Signs - 24 hr 02/05/22 20:00 02/06/22 06:00 Temperature 98.2 F 98.3 F Pulse Rate 85 71 Respiratory Rate 18 Blood Pressure 136/68 115/53 L Pulse Oximetry 94 95 BMI result Body Mass Index 20.5 Labs Results: 02/01/22 11:13 02/01/22 11:10 Medications Medications Current Medications Acetaminophen (Acetaminophen 325 Mg Tablet) 650 mg PO Q6H PRN PRN Reason: mild pain Last Admin: 02/06/22 11:52 Dose: 650 mg Documented by: Al Hydroxide/Mg Hydroxide (Magnesium Hydrox/Alum Hydrox 30 Ml Oral.Susp) 30 ml PO Q6H PRN PRN Reason: Heartburn/Nausea Amlodipine Besylate (Amlodipine Besylate 10 Mg Tablet) 10 mg PO DAILY [facility]; Protocol Last Admin: 02/06/22 08:14 Dose: 10 mg Documented by: Atorvastatin Calcium (Atorvastatin Calcium 80 Mg Tablet) 80 mg PO BEDTIME [facility] Last Admin: 02/05/22 20:06 Dose: 80 mg Documented by: Bupropion HCl (Bupropion Hcl 100 Mg Tablet) 100 mg PO BID@0800,1700 [facility] Last Admin: 02/06/22 08:14 Dose: 100 mg Documented by: Clopidogrel Bisulfate (Clopidogrel Bisulfate 75 Mg Tablet) 75 mg PO BEDTIME [facility] Last Admin: 02/05/22 20:06 Dose: 75 mg Documented by: Cyanocobalamin (Cyanocobalamin (Vitamin B-12) 100 Mcg Tablet) 100 mcg PO DAILY [facility] Last Admin: 02/06/22 08:14 Dose: 100 mcg Documented by: Escitalopram Oxalate (Escitalopram Oxalate 20 Mg Tablet) 20 mg PO DAILY [facility] Last Admin: 02/06/22 08:14 Dose: 20 mg Documented by: Hydrochlorothiazide (Hydrochlorothiazide 12.5 Mg Tablet) 12.5 mg PO DAILY [facility]; Protocol Last Admin: 02/06/22 08:14 Dose: 12.5 mg Documented by: Ipratropium [place] (Ipratropium [place] 1 Puff/17 Mcg Inhaler) 2 puff INHALE BID PRN PRN Reason: Shortness of Breath Last Admin: 02/05/22 21:09 Dose: 2 puff Documented by: Lorazepam (Lorazepam 0.5 Mg Tablet) 0.25 mg PO TID PRN PRN Reason: anxiety/restlessness Last Admin: 02/06/22 11:53 Dose: 0.25 mg Documented by: Magnesium Hydroxide (Milk Of Magnesia 30 Ml Oral.Susp) 30 ml PO DAILY PRN PRN Reason: Constipation Multivitamins/Vitamin C (Multivitamin Tablet) 1 tab PO DAILY [facility] Last Admin: 02/06/22 08:14 Dose: 1 tab Documented by: Nicotine Polacrilex (Nicotine Polacrilex Lozenge 2 Mg Lozenge) 2 mg BUCCAL Q2H PRN PRN Reason: nictotine craving Omeprazole (Omeprazole 20 Mg Capsule.Dr) 20 mg PO DAILY@0630 [facility] Last Admin: 02/06/22 05:47 Dose: 20 mg Documented by: Thiamine HCl (Thiamine Hcl 100 Mg Tablet) 100 mg PO DAILY [facility] Last Admin: 02/06/22 08:14 Dose: 100 mg Documented by: Trazodone HCl (Trazodone Hcl 50 Mg Tablet) 150 mg PO BEDTIME PRN PRN Reason: insomnia Last Admin: 02/05/22 23:27 Dose: 150 mg Documented by: Valsartan (Valsartan 40 Mg Tablet) 40 mg PO DAILY [facility]; Protocol Last Admin: 02/06/22 08:14 Dose: 40 mg Documented by: Allergies Allergies Allergy/AdvReac Type Severity Reaction Status Date / Time sertraline Allergy Unknown Verified 01/28/22 20:02 cefuroxime [From Ceftin] AdvReac Stomach Verified 01/28/22 20:01 Upset oxycodone AdvReac Anxiety Verified 01/28/22 20:02 bet AdvReac Palpitation Uncoded 01/28/22 19:59 s Assessment & Plan Assessment & Plan (1) MDD (major depressive disorder), recurrent episode, moderate: Status: Acute Code(s): F33.1 - Major depressive disorder, recurrent, moderate Plan Patient is a 76-year-old female with history of mild to moderate depression, stroke, COPD, hypertension, b/l tremor who presents for worsening depression in the face of psychosocial stressors including of her best friend. Patient says that up until the past few months she was her normal self, overall doing well, driving her son to work every morning, going to the store, doing laundry and other household work and pain her own bills. However, her best friend 1 year ago this past October and patient feels that this loss is a significant part of her depression. Patient endorses numerous symptoms of depression, poor attention to ADLs, sleeping all day and eating very little; she has intermittent passive wish but no active SI. Patient has been on Lexapro for years which she reports has been helpful. Recently stopped on gabapentin and Ativan out of concern could be contributing to her depression. Patient would like medication management to help with her symptoms. 1. Depression: - Continue Lexapro 20 mg daily - Increase Wellbutrin up to 100 mg p.o. b.i.d.. - Increase trazodone up to 150 p.o. q.h.s. to target insomnia -Ca and TSH WNL 2. Normocytic anemia H&H has been slowly trending down during this admission; will follow. She has only been off iron for a week making is an unlikely cause; also it is not microcytic anemia -occult stool test + -H&H stable -B12 WNL -Foloate WNL GI Consult on 02/01 IMPRESSION:? Anemia with Hemoccult-positive stools.? At this time, she appears quite stable with no evidence of active ongoing bleeding.? She likely has some component of gastrointestinal blood loss from her angioectasias, and I discussed this with her.? I would recommend continuing a proton pump inhibitor and following her hematocrit.? I discussed with her that I would recommend she call Dr. Weathers's office after discharge from the inpatient psychiatric unit to see if they can accommodate her for her followup studies in a timely manner. 3. Mild Electrolyte imbalance -sodium low on admission; -Na mildly low -K back to normal Reviewed medical hx from [facility] 4. Chronic conditions: Continue home medications pt has ILR from 2019 CAD COPD CVA hx of Colonic Polyp and GI bleed Migraine Tremor: gabapentin for tremor? PCP dc'd gabapentin about a week ago out of concern that it could affect depression; daughter thinks that patient's tremor is actually better off the gabapentin HTN Other I spent ___20___ minutes with the patient and/or on the patient floor today, greater than?50% of which was spent counseling/coordinating care. Reason for contiued inpatient stay Substantial Risk for: inability to function, rapid decompensation and med/psych decompensation
[2022-02-06 20:01] VITALS: BP 101/50; PULSE 93; RESP 16; TEMP 36.7; O2SAT 95
[2022-02-06] MEDS: Atorvastatin Calcium 80 MG TABLET PO (20:25)
[2022-02-06] MEDS: Clopidogrel Bisulfate 75 MG TABLET PO (20:25)
[2022-02-06] MEDS: Ipratropium Bromide 1 PUFF/17 MCG INHALER 2 PUFF INHALE (22:12)
[2022-02-06] MEDS: traZODone HCL 50 MG TABLET 150 MG PO (22:12)
[2022-02-07 06:00] VITALS: BP 104/55; PULSE 66; RESP 16; TEMP 36.5; O2SAT 93
[2022-02-07] MEDS: Omeprazole 20 MG CAPSULE.DR PO (06:08)
--- NOTE | 2022-02-07 07:56 | HO.PSYCHPN ---
Subjective Subjective Date of Service: 02/07/22 Reason For Visit: disorganized Subjective Notes: Conditional Voluntary Interim History: The nursing staff reported that the patient has been out of her room most of the day she had been quiet and social with select peers. In the afternoon she was isolative but she watches TV movie in the afternoon. She is still struggling with poor sleep but she took trazodone 150 last night and slept for 7 hours. On the interview, the patient reported some depressive symptoms but adamantly denies suicidal ideation. She wanted to stay in her bed in the morning. No new symptoms. Mental Status Exam Mental Status Exam Patient Appearance: Well Grooomed Patient Orientation: Person and Situation Level of Consciousness: Awake Patient Behavior: Cooperative Mood Description: Withdrawn and Depressed Affect Description: Constricted Patient Cognition Impaired: No Ability to Follow Directions: Good Speech Pattern: Clear Hallucinations: None Delusions: Not Present Thought Process: Distracted Thought Content: positive for [place], positive for Circumstantial and positive for Poverty of Content Judgement: Fair Diagnostics Vital Signs (24Hr): Vital Signs - 24 hr 02/06/22 20:01 Temperature 98.1 F Pulse Rate 93 Respiratory Rate 16 Blood Pressure 101/50 L Pulse Oximetry 95 BMI result Body Mass Index 20.5 Labs Results: 02/01/22 11:13 02/01/22 11:10 Medications Medications Current Medications Acetaminophen (Acetaminophen 325 Mg Tablet) 650 mg PO Q6H PRN PRN Reason: mild pain Last Admin: 02/06/22 22:13 Dose: 650 mg Documented by: Al Hydroxide/Mg Hydroxide (Magnesium Hydrox/Alum Hydrox 30 Ml Oral.Susp) 30 ml PO Q6H PRN PRN Reason: Heartburn/Nausea Amlodipine Besylate (Amlodipine Besylate 10 Mg Tablet) 10 mg PO DAILY [facility]; Protocol Last Admin: 02/06/22 08:14 Dose: 10 mg Documented by: Atorvastatin Calcium (Atorvastatin Calcium 80 Mg Tablet) 80 mg PO BEDTIME [facility] Last Admin: 02/06/22 20:25 Dose: 80 mg Documented by: Bupropion HCl (Bupropion Hcl 100 Mg Tablet) 100 mg PO BID@0800,1700 [facility] Last Admin: 02/06/22 18:03 Dose: 100 mg Documented by: Clopidogrel Bisulfate (Clopidogrel Bisulfate 75 Mg Tablet) 75 mg PO BEDTIME [facility] Last Admin: 02/06/22 20:25 Dose: 75 mg Documented by: Cyanocobalamin (Cyanocobalamin (Vitamin B-12) 100 Mcg Tablet) 100 mcg PO DAILY [facility] Last Admin: 02/06/22 08:14 Dose: 100 mcg Documented by: Escitalopram Oxalate (Escitalopram Oxalate 20 Mg Tablet) 20 mg PO DAILY [facility] Last Admin: 02/06/22 08:14 Dose: 20 mg Documented by: Hydrochlorothiazide (Hydrochlorothiazide 12.5 Mg Tablet) 12.5 mg PO DAILY [facility]; Protocol Last Admin: 02/06/22 08:14 Dose: 12.5 mg Documented by: Ipratropium [place] (Ipratropium [place] 1 Puff/17 Mcg Inhaler) 2 puff INHALE BID PRN PRN Reason: Shortness of Breath Last Admin: 02/06/22 22:12 Dose: 2 puff Documented by: Lorazepam (Lorazepam 0.5 Mg Tablet) 0.25 mg PO TID PRN PRN Reason: anxiety/restlessness Last Admin: 02/06/22 11:53 Dose: 0.25 mg Documented by: Magnesium Hydroxide (Milk Of [place]esia 30 Ml Oral.Susp) 30 ml PO DAILY PRN PRN Reason: Constipation Multivitamins/Vitamin C (Multivitamin Tablet) 1 tab PO DAILY [facility] Last Admin: 02/06/22 08:14 Dose: 1 tab Documented by: Nicotine Polacrilex (Nicotine Polacrilex Lozenge 2 Mg Lozenge) 2 mg BUCCAL Q2H PRN PRN Reason: nictotine craving Omeprazole (Omeprazole 20 Mg Capsule.Dr) 20 mg PO DAILY@0630 [facility] Last Admin: 02/07/22 06:08 Dose: 20 mg Documented by: Thiamine HCl (Thiamine Hcl 100 Mg Tablet) 100 mg PO DAILY [facility] Last Admin: 02/06/22 08:14 Dose: 100 mg Documented by: Trazodone HCl (Trazodone Hcl 50 Mg Tablet) 150 mg PO BEDTIME PRN PRN Reason: insomnia Last Admin: 02/06/22 22:12 Dose: 150 mg Documented by: Valsartan (Valsartan 40 Mg Tablet) 40 mg PO DAILY [facility]; Protocol Last Admin: 02/06/22 08:14 Dose: 40 mg Documented by: Allergies Allergies Allergy/AdvReac Type Severity Reaction Status Date / Time sertraline Allergy Unknown Verified 01/28/22 20:02 cefuroxime [From Ceftin] AdvReac Stomach Verified 01/28/22 20:01 Upset oxycodone AdvReac Anxiety Verified 01/28/22 20:02 bet AdvReac Palpitation Uncoded 01/28/22 19:59 s Assessment & Plan Assessment & Plan (1) MDD (major depressive disorder), recurrent episode, moderate: Status: Acute Code(s): F33.1 - Major depressive disorder, recurrent, moderate Plan Patient is a 76-year-old female with history of mild to moderate depression, stroke, COPD, hypertension, b/l tremor who presents for worsening depression in the face of psychosocial stressors including of her best friend. Patient says that up until the past few months she was her normal self, overall doing well, driving her son to work every morning, going to the store, doing laundry and other household work and pain her own bills. However, her best friend 1 year ago this past October and patient feels that this loss is a significant part of her depression. Patient endorses numerous symptoms of depression, poor attention to ADLs, sleeping all day and eating very little; she has intermittent passive wish but no active SI. Patient has been on Lexapro for years which she reports has been helpful. Recently stopped on gabapentin and Ativan out of concern could be contributing to her depression. Patient would like medication management to help with her symptoms. 1. Depression: - Continue Lexapro 20 mg daily - Increase Wellbutrin up to 100 mg p.o. b.i.d.. - Increase trazodone up to 150 p.o. q.h.s. to target insomnia -Ca and TSH WNL 2. Normocytic anemia H&H has been slowly trending down during this admission; will follow. She has only been off iron for a week making is an unlikely cause; also it is not microcytic anemia -occult stool test + -H&H stable -B12 WNL -Foloate WNL GI Consult on 02/01 IMPRESSION:? Anemia with Hemoccult-positive stools.? At this time, she appears quite stable with no evidence of active ongoing bleeding.? She likely has some component of gastrointestinal blood loss from her angioectasias, and I discussed this with her.? I would recommend continuing a proton pump inhibitor and following her hematocrit.? I discussed with her that I would recommend she call Dr. Weathers's office after discharge from the inpatient psychiatric unit to see if they can accommodate her for her followup studies in a timely manner. 3. Mild Electrolyte imbalance -sodium low on admission; -Na mildly low -K back to normal Reviewed medical hx from [facility] 4. Chronic conditions: Continue home medications pt has ILR from 2019 CAD COPD CVA hx of Colonic Polyp and GI bleed Migraine Tremor: gabapentin for tremor? PCP dc'd gabapentin about a week ago out of concern that it could affect depression; daughter thinks that patient's tremor is actually better off the gabapentin HTN Other D/C FOR TOMORROW 4 PM I spent __20____ minutes with the patient and/or on the patient floor today, greater than?50% of which was spent counseling/coordinating care. Reason for contiued inpatient stay Substantial Risk for: inability to function, rapid decompensation and med/psych decompensation
[2022-02-07] MEDS: Valsartan 40 MG TABLET PO (08:49)
[2022-02-07] MEDS: amLODIPine Besylate 10 MG TABLET PO (08:49)
[2022-02-07] MEDS: Thiamine HCL 100 MG TABLET PO (08:49)
[2022-02-07] MEDS: Multivitamin TABLET 1 TAB PO (08:49)
[2022-02-07] MEDS: hydroCHLOROthiazide 12.5 MG TABLET PO (08:49)
[2022-02-07] MEDS: Escitalopram Oxalate 20 MG TABLET PO (08:49)
[2022-02-07] MEDS: buPROPion HCL 100 MG TABLET PO ×2 (08:49→16:51)
[2022-02-07] MEDS: Cyanocobalamin (Vitamin B-12) 100 MCG TABLET PO (08:49)
[2022-02-07] MEDS: Ipratropium Bromide 1 PUFF/17 MCG INHALER 2 PUFF INHALE (14:40)
[2022-02-07 16:48] VITALS: BP 98/63; PULSE 87; RESP 20; TEMP 36.6; O2SAT 95
[2022-02-07] MEDS: Atorvastatin Calcium 80 MG TABLET PO (20:04)
[2022-02-07] MEDS: Clopidogrel Bisulfate 75 MG TABLET PO (20:04)
[2022-02-07] MEDS: Acetaminophen 325 MG TABLET 650 MG PO (20:38)
[2022-02-07] MEDS: traZODone HCL 50 MG TABLET 150 MG PO (20:39)
[2022-02-08 07:00] VITALS: BMI 21.6
--- NOTE | 2022-02-08 07:58 | P.DS_ITS ---
DS: Providers Provider Date of Service: 02/08/22 Date of admission: 01/29/22 19:19 Date of discharge: 02/08/22 Primary care physician: Latoya Hadley NP Attending physician on discharge: Ankit Tinajero DS: Diagnosis Discharge Diagnosis (1) MDD (major depressive disorder), recurrent episode, moderate: Status: Acute DS: Medications Discharge Medications Home Medications: Home Medications Medication Instructions Recorded Confirmed amlodipine 10 mg tablet 1 tab PO DAILY 01/29/22 01/29/22 atorvastatin 80 mg tablet 1 tab PO BEDTIME 01/29/22 01/29/22 clopidogrel 75 mg tablet 1 tab PO DAILY 01/29/22 01/29/22 escitalopram oxalate 20 mg tablet 1 tab PO DAILY 01/29/22 01/29/22 hydrochlorothiazide 12.5 mg capsule 1 cap PO DAILY 01/29/22 01/29/22 ipratropium bromide 17 2 puff INHALATION QID 01/29/22 01/29/22 mcg/actuation HFA aerosol inhaler (Atrovent HFA) pantoprazole 20 mg tablet,delayed 1 tab PO DAILY 01/29/22 01/29/22 release valsartan 80 mg tablet 1 tab PO DAILY 01/29/22 01/29/22 Mental Status Exam Mental Status Exam Patient Appearance: Well Grooomed Patient Orientation: Person and Situation Level of Consciousness: Awake Patient Behavior: Cooperative Mood Description: Calm Affect Description: Constricted Patient Cognition Impaired: No Ability to Follow Directions: Good Speech Pattern: Clear Memory Description: Intact Hallucinations: None Delusions: Not Present Thought Process: Linear Thought Content: positive for [place] and positive for Circumstantial Judgement: Fair Data Data Completed and Pending Completed studies during hospitalization [Text1]: 02/01/22 02/01/22 11:10 11:13 WBC 5.7 RBC 3.89 L Hgb 10.6 L Hct 31.7 L MCV 81.5 MCH 27.2 MCHC 33.4 RDW 13.8 Plt Count 263 MPV 9.9 Immature Gran % (Auto) 0.2 Neut % (Auto) 66.6 Lymph % (Auto) 15.2 L [place] % (Auto) 14.5 H Eos % (Auto) 3.0 Baso % (Auto) 0.5 Lymph # (Auto) 0.9 L [place] # (Auto) 0.8 Eos # (Auto) 0.2 Baso # (Auto) 0.0 Abs Immat Gran (auto) 0.01 Absolute Neuts (auto) 3.8 Absolute Nucleated RBC 0.000 Nucleated RBC % (auto) 0.0 Sodium 133 L Potassium 3.3 Chloride 95 L Carbon Dioxide 31 H Anion Gap 10 L BUN 11 Creatinine 0.65 Estim Creat Clear Calc 63.2 Estimated GFR > 60 01/29/22 Unknown Urine clean catch - Urine [place] Urine Culture - Final No growth. DS: Summary Hospital Course Hospital Course: The patient was initially admitted for exacerbation of depression with severe lack of energy and anhedonia. Please see HPI of the admission note for further details. She was initially admitted that and then transferred to this unit. On admission, the patient reported several medical problems such as past history of TIA, GI bleed followed by Dr. Weathers at [facility] and other medical comorbidities. We gather collateral information and records for and sings her H&H was stable, our community health outreach worker suggested to continue treatment as an outpatient with Dr. Weathers at [facility]. We had a family meeting we discussed at length risks, benefits, side-effects and alternatives to treat exacerbation of depression. Since the patient has been on SSRI for several years, she agreed to add a 2nd antidepressant. Wellbutrin was started and titrated up slowly up to 100 mg p.o. b.i.d.. At the beginning, the patient was very isolative, refused to go to groups and state on her room most of the day. Also, her sleep cycle was inverted, she was awake at night and sleeping during the day. Psych with location into her condition was provided and she agreed to titrated up trazodone up to 150 mg p.o. q.h.s. to target insomnia with for improvement. The patient's mood improved, she adamantly denies suicidal ideation and since there were no safety concerns and were some improvement of her mood, discharge planning was discussed. Time spent discussing smoking cessation with patient: 3 to 10 minutes Status at Discharge Cognitive/behavioral status at discharge: At baseline Functional status at discharge: independent ambulation Overall status at discharge: patient is back to baseline Time Spent with Patient Time attestation: Total time spent providing and/or coordinating discharge services: Time spent: Less than 30 minutes Discharge Plan Discharge Patient Disposition: Home, Self-Care Discharge Diagnosis: major depressive disorder recurrent episode Referrals: Gemma Green, Geriatric project internship [Other] - 02/16/22 11:00 am (Your first psychiatry appointment with Gemma Peter is a home visit on 02/16/22 at 11:00AM. She will call to confirm before appointment.) [facility] [Other] - 02/09/22 2:00 pm (Your tour of adult day health program is scheduled for 02/09/22 at 2:00PM. There are openings in day program for s, s and . ) Micaela Sequeira [facility] [Other] - 1 Week (At this time you are on the waitlist and she will contact you when she is able to accommodate. ) Latoya Hadley, [employer] [Primary Care Provider] - 1 Week Discharge Medications: New multivitamin [Daily-Joyce] Tablet 1 tab PO DAILY 30 Days Qty: 30 0RF cyanocobalamin (vitamin B-12) [Vitamin B-12] 100 mcg Tablet 100 mcg PO DAILY 30 Days Qty: 30 0RF trazodone 50 mg Tablet 150 mg PO BEDTIME PRN (Reason: insomnia) 30 Days Qty: 90 0RF bupropion HCl 100 mg Tablet 100 mg PO BID@0800,1700 30 Days Qty: 60 0RF lorazepam 0.5 mg Tablet 0.25 mg PO TID PRN (Reason: Anxiety/Restlessness) 30 Days Qty: 45 0RF thiamine mononitrate (vit B1) 100 mg Tablet 100 mg PO DAILY 30 Days Qty: 30 0RF Continued atorvastatin 80 mg tablet 1 tab PO BEDTIME 30 Days Qty: 30 0RF valsartan 80 mg tablet 1 tab PO DAILY 30 Days Qty: 30 0RF clopidogrel 75 mg tablet 1 tab PO DAILY 30 Days Qty: 30 0RF pantoprazole 20 mg tablet,delayed release (DR/EC) 1 tab PO DAILY 30 Days Qty: 30 0RF amlodipine 10 mg tablet 1 tab PO DAILY 30 Days Qty: 30 0RF hydrochlorothiazide 12.5 mg capsule 1 cap PO DAILY 30 Days Qty: 30 0RF escitalopram oxalate 20 mg tablet 1 tab PO DAILY 30 Days Qty: 30 0RF Atrovent HFA 17 mcg/actuation HFA aerosol inhaler 2 puff inhalation QID Qty: 12.9 0RF Discharge Orders: Discharge Order (Routine); Ordered 02/08/22 Ordered By: Ankit Tinajero Diet: advance to usual diet Activity on Discharge: As tolerated Stand Alone Forms: Patient Portal Discharge page Care Plan Goals: care plan goals achieved in this admission Health Concerns: continue care with primary care physician. Continue follow-up with a community health outreach worker at [facility]. Plan of Treatment: Continue medication management by outpatient provider and psychotherapy. Assessment: Elderly female with a long history of major depressive disorder recurrent episode that was admitted for exacerbation of depression with neurovegetative symptoms. She had been taking Lexapro up to 20 mg p.o. daily with limited improvement so we added Wellbutrin titrated up to 100 mg p.o. b.i.d. with for improvement and resolution of severe anhedonia. Since there were no safety concerns discharge planning was discussed
[2022-02-08] MEDS: Thiamine HCL 100 MG TABLET PO (08:44)
[2022-02-08] MEDS: Omeprazole 20 MG CAPSULE.DR PO (08:44)
[2022-02-08] MEDS: Escitalopram Oxalate 20 MG TABLET PO (08:44)
[2022-02-08] MEDS: Multivitamin TABLET 1 TAB PO (08:44)
[2022-02-08] MEDS: Cyanocobalamin (Vitamin B-12) 100 MCG TABLET PO (08:44)
[2022-02-08] MEDS: buPROPion HCL 100 MG TABLET PO ×2 (08:44→15:58)
[2022-02-08] MEDS: amLODIPine Besylate 10 MG TABLET PO (08:45)
[2022-02-08] MEDS: Valsartan 40 MG TABLET PO (08:45)
[2022-02-08] MEDS: hydroCHLOROthiazide 12.5 MG TABLET PO (08:45)
[2022-02-08 08:50] VITALS: BP 111/54; PULSE 90; RESP 16; TEMP 37.2; O2SAT 92
[2022-02-08] MEDS: Acetaminophen 325 MG TABLET 650 MG PO (12:42)
[2022-02-08] MEDS: Ipratropium Bromide 1 PUFF/17 MCG INHALER 2 PUFF INHALE (13:00)
== END 2022-02-08 16:14 | disposition home or self-care (01) | DRG 885 ==
LOC: HO.ED 01-29 10:01 → HO.PM5 01-29 19:24 → HO.PGERI 02-01 14:19
PROVIDERS: Physician Assistant; Admitting Provider Psychiatry & Neurology Psychiatry; Emergency Provider Emergency Medicine Emergency Medical Services; PCP Nurse Practitioner Family; Visit Provider Psychiatry & Neurology Psychiatry
DX: F33.1 Major depressive disorder, recurrent, moderate (principal); D64.9 Anemia, unspecified; J44.9 Chronic obstructive pulmonary disease, unspecified; I25.10 Atherosclerotic heart disease of native coronary artery without angina pectoris; I10 Essential (primary) hypertension; R25.1 Tremor, unspecified; Z86.73 Personal history of transient ischemic attack (TIA), and cerebral infarction without residual deficits; Z86.010 Personal history of colon polyps; Z20.822 Contact with and (suspected) exposure to COVID-19; Z88.5 Allergy status to narcotic agent; Z88.8 Allergy status to other drugs, medicaments and biological substances; Z87.891 Personal history of nicotine dependence; Z79.01 Long term (current) use of anticoagulants; Z79.899 Other long term (current) drug therapy
CPT/HCPCS: 36415; 80048; 80051; 80076; 80307; 81001; 82272; 82310; 82565; 82607; 82746; 83735; 84443; 84520; 85025; 85027; 87086; 87635; 93005; 96360; 99285